=== PATIENT | female | born 1960 | race Caucasian/White ===

== ENCOUNTER → 2017-07-05 10:00 | Outpatient (CLI) | payer BC, SELFPAY ==
[2017-07-05 10:30] LABS: Basophils % 0.4 % (0.1-2.0); Eosinophils # 0.2 K/mm3 (0.0-0.4); Eosinophils % 3.8 % (0.1-12.0); Hematocrit 43.6 % (37.0-47.0); Hemoglobin 14.1 g/dL (12.2-16.2); Lymphocytes % 34.1 K/mm3 (10-50); Mean Corpuscular HGB Conc 32.3 g/dL (31.8-35.4); Mean Corpuscular Hemoglobin 30.3 pg (27.0-31.2); Mean Corpuscular Volume 93.7 fl (81-99); Mean Platelet Volume 7.2 fl (7.4-10.4); Monocytes # 0.4 K/mm3 (0.1-1.0); Monocytes % 6.4 % (1.7-9.3); Neutrophils # 3.3 K/mm3 (1.8-7.8); Neutrophils % 55.4 % (37.0-80.0); Platelet Count 311 K/mm3 (142-424); Red Blood Count 4.65 M/mm3 (4.20-5.40); Red Cell Distribution Width 12.3 % (11.5-17.5)
[2017-07-05 10:31] LABS: Anion Gap 8.4 mEq/L (5-15); Blood Urea Nitrogen 15 mg/dL (7-18); Carbon Dioxide 35 mmol/L (21.0-32.0); Chloride 98 mmol/L (98-107); Creatinine,Serum 0.59 mg/dL (0.55-1.02); Estimated Glomerular Filt Rate 105 ml/min (>60); GFR (African American) 127 ML/MIN (>60); Glucose 96 mg/dL (74-106); Potassium 3.4 mmoL/L (3.5-5.1); Sodium 138 mmol/L (136-145)
== END ==
PROVIDERS: Family Provider Internal Medicine Adolescent Medicine; PCP Internal Medicine Adolescent Medicine; Visit Provider Physician Assistant
DX: J44.9 Chronic obstructive pulmonary disease, unspecified (principal); I50.30 Unspecified diastolic (congestive) heart failure; R06.02 Shortness of breath
CPT/HCPCS: 36415; 80048; 83880; 85025

== ENCOUNTER → 2017-07-11 12:39 | Outpatient (CLI) | payer BC, SELFPAY ==
--- NOTE | 2017-07-11 12:45 | CA_ITS ---
PROCEDURE: 2-D M-mode and color Doppler study INDICATIONS FOR THE TEST: Chest pain COPDX Heart Murmur Tobacco Smoking Palpitations Fatigue Syncope EdemaX HypertensionXDiabetes Mellitus Rheumatic Fever SOBXDOE ObesityXHyperlipidemia Family History HD Additional History PATIENT INFORMATION HEIGHT: 60 WEIGHT:179 GENDER: Female B/P:122/77 2-D/M-MODE INTERPRETATION: 2-D MEASUREMENTS OBSERVED VALUES IN CMS Right Ventricular Dimension (RVDd) 1.1 Interventricular Septum (Thickness)(IVsd) 1.5 Left Ventricular Internal Dimensions(LVIDd) 4.4 Left Ventricular Posterior Wall (Thickness)(LVPWd) 1.6 Aortic Root 3.3 Aortic Cusp Separation 2.1 Left Atrial Dimensions (LAD) 2.8 2D 1. Left atrium is normal size, left ventricle is normal size, there is mild concentric left ventricular hypertrophy, visually estimated ejection fraction of 55% with no obvious regional wall motion abnormality. 2. The right atrium and right ventricle are normal size and contractility. 3. The aortic valve is minimally thickened and fibrosed. 4. The mitral and tricuspid valve are structurally normal. 5. The pulmonic valve is poorly 6. No significant pericardial effusion noted. DOPPLER INTERROGATION: Doppler interrogation of the aortic, mitral and tricuspid valve reveals presence of mild mitral and tricuspid regurgitation, tricuspid and jet velocity insufficient for calculation of the right ventricular systolic pressure, grade 1 diastolic dysfunction seen without tissue Doppler evidence of raised left atrial pressure. CONCLUSION: 1. Normal left ventricular size, preserved left ventricular systolic function, visually estimated ejection fraction 55% with no obvious regional wall motion abnormality, grade 1 diastolic dysfunction seen with tissue Doppler evidence of raised left atrial pressure. 2. Mild mitral and tricuspid regurgitation 3. No significant pericardial effusion noted.
== END ==
PROVIDERS: Family Provider Internal Medicine Adolescent Medicine; PCP Internal Medicine Adolescent Medicine; Visit Provider Internal Medicine
DX: J44.9 Chronic obstructive pulmonary disease, unspecified (principal); I50.30 Unspecified diastolic (congestive) heart failure; R06.02 Shortness of breath
CPT/HCPCS: 93306

== ENCOUNTER → 2018-07-04 13:01 | Outpatient (CLI) | payer BC, SELFPAY ==
--- NOTE | 2018-07-04 13:10 | XR_ITS ---
XR chest 2V HISTORY: ITS.REASON: COPD ORDERING PHYSICIAN: Sean Galo MD PATIENT AGE: 58 years COMPARISON: PA and lateral chest 04/01/2014 FINDINGS: The lung locke are well expanded and appear clear of infiltrate. Again noted is moderate distortion of the bony thorax secondary to the prominent dextroscoliotic curvature of the thoracic spine and the orthopedic hardware in place projecting over the thoracic spine. Cardiac size is borderline however the is no pulmonary congestion and is no pleural fluid. IMPRESSION: Nonacute chest findings, Cano jose in place
== END ==
PROVIDERS: PCP Internal Medicine Adolescent Medicine; Visit Provider Internal Medicine Adolescent Medicine
DX: J44.9 Chronic obstructive pulmonary disease, unspecified (principal)
CPT/HCPCS: 71046

== ENCOUNTER → 2018-11-30 10:10 | Outpatient (CLI) | payer BC, SELFPAY ==
--- NOTE | 2018-11-30 10:14 | MM_ITS ---
PROCEDURE: MM DIG SCREENING MAMM BI W/CAD CLINICAL INDICATION: SCREENING There is a history of breast cancer patient's maternal aunt diagnosed before menopause. The patient had previous mammograms 20 years ago and they are not available for review COMPARISON: No exams were available for comparison TECHNIQUE: Standard CC and MLO images were obtained. R2 CAD reviewed. FINDINGS: Moderate scattered fibroglandular densities are seen in central portions of both breasts. There is a possible asymmetric density just deep to the nipple left breast best appreciated on the on the cc view. Recommend the patient return for spot compression views in MLO CC projection and ultrasound may be necessary as well. Small nodes in both axilla. There are no suspicious microcalcifications. IMPRESSION: Moderate breast density with possible asymmetric density left breast versus summation shadow BI-RAD Category: 0 Need Additional Imaging Evaluation FOLLOW-UP: IMM Immediate Follow-up Recommended (A letter has been sent to the patient regarding results of the study.) Dictated by: Dr. Duane Wren MD 12/04/2018 07:59 Signed by: <Electronically signed by Dr. Duane Wren MD in [place]> 12/04/2018 07:59
--- NOTE | 2018-11-30 10:27 | XR_ITS ---
PROCEDURE: XR DEXA AXIAL SKELETON CLINICAL HISTORY: POST MENOPAUSAL COMPARISON: No exams were available for comparison TECHNIQUE: Hardware is present in the lumbar spine. The radius 33 percent density has a T-score -1.6. Right femoral neck density is 0.723 grams/centimeter sq with a T-score of -2.3. FINDINGS: Hardware is present in the lumbar spine. The radius 33 percent density has a T-score -1.6. Right femoral neck density is 0.723 grams/centimeter sq with a T-score of -2.3. IMPRESSION: Osteopenia with moderate fracture risk. Treatment advised. Suggest follow-up exam November 2020 Dictated by: Tito Underwood MD 11/30/2018 12:24 Signed by: <Electronically signed by Tito Underwood MD in [place]> 11/30/2018 12:24
== END ==
PROVIDERS: PCP Internal Medicine Adolescent Medicine; Visit Provider Internal Medicine Adolescent Medicine
DX: Z12.31 Encounter for screening mammogram for malignant neoplasm of breast (principal); Z13.820 Encounter for screening for osteoporosis; Z78.0 Asymptomatic menopausal state
CPT/HCPCS: 77067; 77080

== ENCOUNTER → 2019-01-24 11:25 | Outpatient (CLI) | payer BC, SELFPAY ==
[2019-01-24 11:29] LABS: Microscopic, Urine URINE MICROSCOPIC (MICROSCOPIC)
--- NOTE | 2019-01-24 11:42 | XR_ITS ---
PROCEDURE: XR CHEST 2V CLINICAL HISTORY: DYSPNEA,PERIPHERAL EDEMA Right-sided chest pain with dyspnea and peripheral edema, former smoker COMPARISON: CT CHEST WO CONTRAST from 12/24/2014 CXR CHEST(2 VIEWS-NOT PORTABLE) from 08/23/2016 CXR CHEST(2 VIEWS-NOT PORTABLE) from 08/25/2016 CXR2V XR chest 2V from 07/04/2018 FINDINGS: Mild cardiomegaly without failure. Thoracic scoliosis convex right. Prior Cano jose placement as before. Fibrotic changes are present in the lower lobes. There is prominence of the mediastinum as before some of which likely related to the scoliosis. There are old right-sided rib fractures. No acute finding. IMPRESSION: No change with no acute finding. Dictated by: Tito Underwood MD 01/24/2019 12:05 Electronically signed by Tito Underwood MD in [place] 01/24/2019 12:05
[2019-01-24 11:55] LABS: Basophils # 0.1 K/mm3 (0-0.2); Basophils % 0.7 % (0.1-2.0); Eosinophils # 0.2 K/mm3 (0.0-0.4); Eosinophils % 2.1 % (0.1-12.0); Hemoglobin 15.2 g/dL (12.2-16.2); Lymphocytes # 1.8 K/mm3 (0.7-4.5); Lymphocytes % 21.1 % (10-50); Mean Corpuscular HGB Conc 32.5 g/dL (31.8-35.4); Mean Corpuscular Hemoglobin 30.6 pg (27.0-31.2); Mean Corpuscular Volume 94.2 fl (81-99); Mean Platelet Volume 7.1 fl (7.4-10.4); Monocytes # 0.4 K/mm3 (0.1-1.0); Monocytes % 4.5 % (1.7-9.3); Neutrophils # 5.9 K/mm3 (1.8-7.8); Neutrophils % 71.5 % (37.0-80.0); Platelet Count 316 K/mm3 (142-424); Red Blood Count 4.99 M/mm3 (4.20-5.40); Red Cell Distribution Width 12.4 % (11.5-17.5); White Blood Count 8.3 K/mm3 (4.8-10.8)
[2019-01-24 12:15] LABS: Appearance,Urine CLEAR (Clear); Blood, Urine 1+ (Negative); Color,Urine RED (Yellow); Glucose,Urine (UA) TRACE (Negative); Ketones,Urine Negative (Negative); Leukocyte Esterase,Urine Negative (Negative); Nitrate,Urine POSITIVE (Negative); Protein,Urine TRACE (Negative); Specific Gravity, Urine 1.015 (1.005-1.030)
[2019-01-24 12:49] LABS: Bilirubin,Urine Trace (Negative)
[2019-01-24 12:57] LABS: Bacteria,Urine 2+ /lpf
[2019-01-24 13:03] LABS: Hyaline Casts,Urine Occasional #/lpf (0)
[2019-01-24 13:39] LABS: Alanine Aminotransferase 27 U/L (12-78); Albumin Level 4.3 gm/dL (3.4-5.0); Albumin/Globulin Ratio 1.2 (1.1-1.8); Alkaline Phosphatase 78 U/L (46-116); Aspartate Amino Transferase 20 U/L (15-37); Bilirubin,Total 0.4 mg/dL (0.2-1.0); Blood Urea Nitrogen 17 mg/dL (7-18); Calcium 9.3 mg/dL (8.5-10.1); Carbon Dioxide 34 mmol/L (21.0-32.0); Creatinine,Serum 0.63 mg/dL (0.55-1.02); Estimated Glomerular Filt Rate 97 ml/min (>60); GFR (African American) 117 ML/MIN (>60); Globulin 3.5 gm/dl (1.3-3.2); Glucose 90 mg/dL (74-106); Thyroid Stimulating Hormone 0.63 uIU/ml (0.358-3.740); Total Protein,Serum 7.8 gm/dL (6.4-8.2)
[2019-01-24 14:28] LABS: Anion Gap 14.4 mEq/L (5-15); Chloride 97 mmol/L (98-107); Potassium 3.4 mmoL/L (3.5-5.1); Sodium 142 mmol/L (136-145)
== END ==
PROVIDERS: PCP Internal Medicine Adolescent Medicine; Visit Provider Internal Medicine Adolescent Medicine
DX: R10.9 Unspecified abdominal pain (principal); R06.09 Other forms of dyspnea; R60.9 Edema, unspecified
CPT/HCPCS: 36415; 71046; 80053; 81001; 83880; 84443; 85025; 87086

== ENCOUNTER → 2019-01-26 13:21 | Outpatient (CLI) | payer BC, SELFPAY ==
--- NOTE | 2019-01-26 13:26 | CA_ITS ---
[facility] RADIOLOGICAL CONSULTATION Patient Name : Jeny Mathis X-RAY # : [id number] Physician: KATHY ERAZO AGE: 58Y : 1960 00:00:00 ( F ) Exam : CA ECHO DOPPLER COMPLETE ACC # : [id number] Study Date : 01/26/2019 13:32:19 Patient Class : O FINAL REPORT CLINICAL DATA: FINDINGS: TRANSCRIBED REPORT EXAM: Comprehensive 2D, Doppler, and color-flow Echocardiogram Supply Planner: Dipti Jo RVT Ht: 5 ft 0 in Wt: 181lbs BSA: 1.79 BP: 137/84 mmHg Indications: COPD, Shortness of Breath, Dyspnea, Hyperlipidemia, Hypertension,Edema,Hx of smoking 2D Dimensions LVOT 2.47 cm (M/F) 1.5-2.5 M-Mode Dimensions RVDd 2.02 cm (0.9-2.6) LVDd 3.95 cm (3.5-5.7) LVDs 2.66 cm (3.5-5.7) IVSd 0.89 cm (0.6-1.1) PWd 0.44 cm (0.6-1.1) EF (Teich) 61.70% FS 32.70% EDV (Teich) 67.90 mL ESV (Teich) 26.00 mL LV Diastology E/A Ratio 1.27 Mitral Valve MV A Velocity 26.00 (40-130 cm/s) Electronically signed by : IMPRESSION: Dictated by at Transcribed by at
== END ==
PROVIDERS: PCP Internal Medicine Adolescent Medicine; Visit Provider Internal Medicine Adolescent Medicine
DX: R06.09 Other forms of dyspnea (principal); R60.9 Edema, unspecified
CPT/HCPCS: 93306

== ENCOUNTER → 2019-03-05 14:06 | Outpatient (CLI) | payer BC, SELFPAY ==
--- NOTE | 2019-03-05 14:11 | XR_ITS ---
PROCEDURE: XR RIBS LT MIN 3V W CXR1V CLINICAL INDICATION: LT RIB PAIN Injury with pain COMPARISON: CT CHEST WO CONTRAST from 12/24/2014 CXR CHEST(2 VIEWS-NOT PORTABLE) from 08/25/2016 CXR2V XR chest 2V from 07/04/2018 XR CHEST 2V from 01/24/2019 FINDINGS: There is moderate to severe dextroscoliosis with Cano rods in place as before. Scarring is noted in both lower lobes. There is diffuse osteopenia. No displaced rib fractures are evident. There are small areas of cortical irregularity involving the left 3rd, 4th, and 9th ribs. These are consistent with nondisplaced fractures and are age indeterminate. No displaced fractures evident. No evidence of pneumothorax. Severe lumbar scoliosis convex left. Nonobstructing 3 mm stone in the mid polar region of the right kidney. IMPRESSION: Severe scoliosis with nondisplaced fractures of the left 3rd 4th and 9th ribs Dictated by: Tito Underwood MD 03/05/2019 17:29 Electronically signed by Tito Underwood MD in [place] 03/05/2019 17:29
== END ==
PROVIDERS: PCP Internal Medicine Adolescent Medicine; Visit Provider Internal Medicine Adolescent Medicine
DX: R07.81 Pleurodynia (principal)
CPT/HCPCS: 71101

== ENCOUNTER → 2019-11-28 08:40 | Outpatient (CLI) | payer BC, SELFPAY ==
[2019-11-28 14:15] LABS: Basophils % 0.6 % (0.1-2.0); Eosinophils # 0.2 K/mm3 (0.0-0.4); Eosinophils % 3.6 % (0.1-12.0); Hemoglobin 15.3 g/dL (12.2-16.2); Lymphocytes # 2.2 K/mm3 (0.7-4.5); Lymphocytes % 33.4 % (10-50); Mean Corpuscular HGB Conc 33.9 g/dL (31.8-35.4); Mean Corpuscular Hemoglobin 30.9 pg (27.0-31.2); Mean Platelet Volume 8.5 fl (7.4-10.4); Monocytes # 0.3 K/mm3 (0.1-1.0); Monocytes % 4.9 % (1.7-9.3); Neutrophils # 3.8 K/mm3 (1.8-7.8); Neutrophils % 57.5 % (37.0-80.0); Platelet Count 344 K/mm3 (142-424); Red Blood Count 4.94 M/mm3 (4.20-5.40); Red Cell Distribution Width 13.1 % (11.5-17.5); White Blood Count 6.7 K/mm3 (4.8-10.8)
[2019-11-28 14:21] LABS: Alanine Aminotransferase 17 U/L (12-78); Albumin Level 4.3 g/dl (3.5-5.0); Albumin/Globulin Ratio 1.4 (1.1-1.8); Alkaline Phosphatase 66 U/L (38-126); Anion Gap 14.1 mEq/L (5-15); Aspartate Amino Transferase 32 U/L (14-36); Bilirubin,Total 0.6 mg/dl (0.2-1.3); Blood Urea Nitrogen 14 mg/dl (7-17); Calcium 9.5 mg/dl (8.4-10.2); Carbon Dioxide 33 mmol/L (22.0-30.0); Chloride 93 mmol/L (98-107); Estimated Glomerular Filt Rate 163 ml/min (>60); GFR (African American) 198 ML/MIN (>60); Glucose 87 mg/dl (74-100); Potassium 4.1 mmoL/L (3.5-5.1); Sodium 136 mmol/L (136-145); Total Protein,Serum 7.3 g/dl (6.3-8.2)
== END ==
PROVIDERS: Visit Provider Internal Medicine Adolescent Medicine
DX: I10 Essential (primary) hypertension (principal)
CPT/HCPCS: 36415; 80053; 85025

== ENCOUNTER 2019-11-30 10:00 | Outpatient (RCR) | payer BC, SELFPAY ==
--- NOTE | 2019-10-31 15:56 | HMH.PTOPWND ---
Rehab Outpt Wound Evaluation Rehab OP Wound Evaluation Start: 10/31/19 14:49 Freq: Status: Active Protocol: Document 10/31/19 15:40 DANIELLE (Rec: 10/31/19 15:55 PHORNE [id number]) Electronically Signed By Rowdy Weeks, PT 10/31/19 15:40 Subjective/History History History Pt is 59 yowf who presents with c/o increased edema and pain in B LE x 2-3 yrs with insidious onset of symptoms. She states, They feel good today, but sometimes they just hurt and swell so bad I can't hardly stand it. 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 She reports B LE present with intermittent numbness/tingling feelings. Subjective Subjective Pain currently 4/10, at worst 9/10. Tenderness to palpation in B lower legs 3/4. Significant varicosities noted on B lower legs. Lymphedema Eval Classification of Lymphedema Secondary Lymphedema Yes: likely CVI, poss Lipidema Stemmer's sign Stemmer's Sign no Stage of Lymphedema Lymphedema stages Stage I (Pitting edema, reduces w/ elevation, no fibrosis) Skin Changes Dry Skin Yes Redness Yes Other Changes Yes Pain Scale Pain Scale (0-10) 9 Affected Extremities Areas Affected by Lymphedema/Edema Right Lower Extremity,Left Lower Extremity Lower Extremity Measurements Left MTP Measurement (cm) 23.2 Heel Measurement (cm) 29.0 10 cm Proximal to Lateral Malleoli 28.4 Measurement (cm) 20 cm Proximal to Lateral Malleoli 36.2 Measurement (cm) 30 cm Proximal to Lateral Malleoli 38.5 Measurement (cm) 40 cm Proximal to Lateral Malleoli 43.7 Measurement (cm) 50 cm Proximal to Lateral Malleoli 51.8 Measurement (cm) 60 cm Proximal to Lateral Malleoli 0 Measurement (cm) Lower Extremity Measurement Total (cm) 250.8 Right MTP Measurement (cm) 21.4 Heel Measurement (cm) 28.8
== END 2019-11-30 10:05 | disposition home or self-care (01) ==
LOC: PT 10:00
PROVIDERS: PCP Internal Medicine Adolescent Medicine; Visit Provider Internal Medicine Adolescent Medicine
DX: R60.0 Localized edema (principal)
CPT/HCPCS: 97140; 97162; 97164

== ENCOUNTER → 2020-02-14 12:32 | Outpatient (CLI) | payer BC, SELFPAY ==
--- NOTE | 2020-02-14 12:37 | XR_ITS ---
PROCEDURE: XR CHEST 2V CLINICAL HISTORY: RT SIDE CHEST PAIN Right-sided chest pain, pain, COMPARISON: CT CT CHEST WO CONTRAST from 12/24/2014 DX CXR2V XR chest 2V from 07/04/2018 CR XR CHEST 2V from 01/24/2019 CR XR RIBS LT MIN 3V W CXR1V from 03/05/2019 FINDINGS: There is moderate thoracic scoliosis convex right. Cano rods are in place as before overall not significantly changed. There are chronic fibrotic changes in the lower lobes. There are old bilateral rib fractures. There is moderate lumbar scoliosis convex left. No acute displaced rib fractures are evident. No acute bony abnormalities. IMPRESSION: Old right-sided rib fractures with severe thoracolumbar scoliosis with Cano rods in place. No definite acute finding. Consider volumetric CT with multi planar and 3D reformats for further evaluation if pain persist Dictated by: Tito Underwood MD 02/14/2020 14:14 Tito Underwood MD in [place] 02/14/2020 14:14
== END ==
PROVIDERS: PCP Internal Medicine Adolescent Medicine; Visit Provider Internal Medicine Adolescent Medicine
DX: R07.89 Other chest pain (principal)
CPT/HCPCS: 71046; 71100

== ENCOUNTER → 2020-09-10 08:15 | Outpatient (CLI) | payer BC, SELFPAY ==
[2020-09-10 10:13] LABS: Basophils # 0.1 K/mm3 (0-0.2); Basophils % 0.9 % (0.1-2.0); Eosinophils # 0.2 K/mm3 (0.0-0.4); Eosinophils % 2.1 % (0.1-12.0); Hematocrit 42.1 % (37.0-47.0); Hemoglobin 14.6 g/dL (12.2-16.2); Lymphocytes # 2.2 K/mm3 (0.7-4.5); Lymphocytes % 30.6 % (10-50); Mean Corpuscular HGB Conc 34.8 g/dL (31.8-35.4); Mean Corpuscular Hemoglobin 31.1 pg (27.0-31.2); Mean Corpuscular Volume 89.6 fl (81-99); Mean Platelet Volume 7.2 fl (7.4-10.4); Monocytes # 0.5 K/mm3 (0.1-1.0); Monocytes % 6.6 % (1.7-9.3); Neutrophils # 4.3 K/mm3 (1.8-7.8); Neutrophils % 59.8 % (37.0-80.0); Platelet Count 371 K/mm3 (142-424); Red Cell Distribution Width 12.9 % (11.5-17.5); White Blood Count 7.3 K/mm3 (4.8-10.8)
[2020-09-10 10:42] LABS: Chloride 92 mmol/L (98-107); Potassium 3.5 mmoL/L (3.5-5.1); Sodium 136 mmol/L (136-145)
[2020-09-10 10:45] LABS: Alanine Aminotransferase 16 U/L (12-78); Albumin Level 4.7 g/dl (3.5-5.0); Albumin/Globulin Ratio 1.7 (1.1-1.8); Alkaline Phosphatase 71 U/L (38-126); Anion Gap 12.5 mEq/L (5-15); Aspartate Amino Transferase 25 U/L (14-36); Bilirubin,Total 0.5 mg/dl (0.2-1.3); Blood Urea Nitrogen 16 mg/dl (7-17); Calcium 9.8 mg/dl (8.4-10.2); Carbon Dioxide 35 mmol/L (22.0-30.0); Cholesterol 199 mg/dl (140-200); Estimated Glomerular Filt Rate 102 ml/min (>60); GFR (African American) 123 ML/MIN (>60); Globulin 2.7 g/dL (1.3-3.2); Glucose 72 mg/dl (74-100); HDL Cholesterol 66 mg/dl (40-60); Total Protein,Serum 7.4 g/dl (6.3-8.2); Triglycerides 74 mg/dl (30-150); VLDL Cholesterol 15 mg/dL (0-40)
[2020-09-10 10:56] LABS: Direct LDL Cholesterol 98.43 mg/dL (100-129)
== END ==
PROVIDERS: Visit Provider Internal Medicine Adolescent Medicine
DX: I10 Essential (primary) hypertension (principal)
CPT/HCPCS: 36415; 80053; 80061; 85025

== ENCOUNTER 2021-02-25 07:57 | Outpatient (CLI) | payer BC, SELFPAY ==
[2021-02-25] VITALS (8 sets, daily range): BP systolic 105–131; BP diastolic 62–83; PULSE 82–92; RESP 20; TEMP 36.8–36.9; O2SAT 91–95
== END 2021-02-25 10:15 | disposition home or self-care (01) ==
LOC: INF 07:58
PROVIDERS: PCP Internal Medicine Adolescent Medicine; Visit Provider Internal Medicine Adolescent Medicine
DX: U07.1 COVID-19 (principal); Z23 Encounter for immunization
CPT/HCPCS: 96365

== ENCOUNTER → 2021-07-06 13:05 | Outpatient (CLI) | payer BC, SELFPAY ==
--- NOTE | 2021-07-06 13:14 | XR_ITS ---
FINAL REPORT CLINICAL HISTORY: RIGHT SACROILIAC JOINT PAIN FINDINGS: SI JOINTS An AP view of the pelvis and lateral views of the right and left SI joints were obtained. There is no acute fracture or dislocation. There are mild degenerative changes of the SI joints bilaterally. The soft tissues are unremarkable. IMPRESSION: Mild degenerative changes bilateral SI joints without acute bony abnormality. Reviewed, Interpreted and Dictated by Aaron Garsia III, MD Transcribed by Olive Nicole Authenticated by Aaron Garsia III, MD on 07/06/2021 02:47:08 PM [facility]
--- NOTE | 2021-07-06 13:14 | XR_ITS ---
FINAL REPORT CLINICAL HISTORY: RIGHT SIDED LOW BACK PAIN FINDINGS: 5 views of the lumbar spine were obtained. There is no evidence of fracture or dislocation. There is levoscoliosis. There is left lateral subluxation of L4 on L5. Mild to moderate degenerative changes and facet arthropathy is seen at the lower lumbar spine. There are partially imaged spinal rods present. No paraspinous soft tissue abnormalities identified. IMPRESSION: Degenerative and postoperative changes without acute bony abnormality. Reviewed, Interpreted and Dictated by Aaron Garsia III, MD Transcribed by Olive Nicole Authenticated by Aaron Garsia III, MD on 07/06/2021 02:47:05 PM [facility]
== END ==
LOC: RAD 13:08
PROVIDERS: PCP Internal Medicine Adolescent Medicine; Visit Provider Internal Medicine Adolescent Medicine
DX: M53.3 Sacrococcygeal disorders, not elsewhere classified (principal)
CPT/HCPCS: 72110; 72202

== ENCOUNTER 2021-07-30 15:00 | Outpatient (RCR) | payer BC, SELFPAY ==
--- NOTE | 2021-06-24 13:15 | HMH.PTOPWND ---
Rehab Outpt Wound Evaluation Rehab OP Wound Evaluation Start: 06/24/21 12:45 Freq: Status: Active Protocol: Document 06/24/21 13:08 DANIELLE (Rec: 06/24/21 13:15 PHOCELINA [id number]) Electronically Signed By Rowdy Weeks, PT 06/24/21 13:08 Subjective/History History History Pt is 60 yowf who presents with c/o B LE edema for several years with insidious onset. She reports increased pain in B LE, R worse than L, but not always associated with increased edema. She also reports her edema is failry constant and does not decrease with elevation of her legs. She reports hx of COPD and HTN . Subjective Subjective I take blood pressure medicin, but my blood pressure isn't high when they check it . Pt c/o 2/4 tenderness to palpation in B LE gaitor area. Mutiple varicosities noted to B LE. Pain currently 3/10, at worst 8/10. Lymphedema Eval Classification of Lymphedema Secondary Lymphedema Yes Stemmer's sign Stemmer's Sign no Stage of Lymphedema Lymphedema stages Stage 0 (subjective c/o heaviness and aching) Skin Changes Dry Skin Yes Skin Folds Yes Discoloration of Skin Yes Other Changes Yes Pain Scale Pain Scale (0-10) 8 Affected Extremities Areas Affected by Lymphedema/Edema Right Lower Extremity,Left Lower Extremity Manual Lymphatic Drainage Treatment Area MLD Treatment Area Right Lower Extremity,Left Lower Extremity Wound Problems/Impairments Impairments Problems/Impairmments Palpation Tenderness,Impaired Endurance,Impaired Walking, Impaired Standing,Impaired Household Care,Impaired Recreational Activities, Increased Edema,Lymphedema Present,Subjective C/O Pain, Impaired Self Care/Self Management Prognosis Rehab Potential Good Clinical Impression Consistent with Diagnosis Yes Short Term Goals Number of Weeks 4 Decreased Palpation
--- NOTE | 2021-07-28 15:49 | HMH.RHREAS ---
Rehab Reassessment Rehab OP Re-assessment Start: 07/28/21 15:40 Freq: Status: Active Protocol: Document 07/28/21 15:41 DANIELLE (Rec: 07/28/21 15:48 PHOCELINA [id number]) Electronically Signed By Rowdy Weeks, PT 07/28/21 15:41 Rehab Re-assessment Subjective Subjective Pt states, I feel a whole lot better, but I'm still just a little tender. Objective Objective Notes L LE with continued edema at the ankle nwithout pitting noted. Tenderness to palpation 1/4 to B LE in the gaitor area. Assessment Progress Assessment Progressing as Expected Assessment Notes Less pain overall with less tenderness noted. Significant change in status with less edema overall. Tenderness is better controlled, but needs improvement. Patient goals met ST,2,3,4 Goals Not Met LT,2,3,4,5,6 Revised Goals none Plan Plan Continue per initial POC. Frequency of Therapy 2 x/wk Duration of therapy 4 wks Time and Billing Re-Eval Time 13 Re-Eval Billing Units 1 PHYSICIAN CERTIFICATION: I certify the specified therapy services for Jeny Mathis are required, authorized, and reviewed every 30 days.
== END 2021-07-30 15:05 | disposition home or self-care (01) ==
LOC: PT 15:00
PROVIDERS: PCP Internal Medicine Adolescent Medicine; Visit Provider Internal Medicine Adolescent Medicine
DX: I89.0 Lymphedema, not elsewhere classified (principal)
CPT/HCPCS: 97140; 97162; 97164; 97760

== ENCOUNTER → 2021-08-17 14:45 | Outpatient (POV) | payer BC, SELFPAY ==
[2021-08-17 15:01] VITALS: BP 178/98; PULSE 113; RESP 20; TEMP 36.6; O2SAT 91; BMI 35.1
--- NOTE | 2021-08-17 15:57 | HMH.PMCON ---
Assessment and Plan (1) Sacroiliitis Status: Acute Category: Medical Code(s): M46.1 - Sacroiliitis, not elsewhere classified (2) Greater trochanteric bursitis Status: Acute Category: Medical Code(s): M70.60 - Trochanteric bursitis, unspecified hip - Assessment and plan all Dx Assessment and Plan for all problems:: We will schedule the patient for a right SI injection and left greater trochanteric bursa injection. Risks and benefits of the procedure have been explained to the patient. Patient would like to proceed with the procedure. Follow-up after the injection. Patient has been instructed to contact the clinic with any concerns before the next appointment. Dr. Downing has reviewed this note and agrees with this plan of care. This note was dictated using voice recognition software and make contain errors or omissions. HPI - Data of Consult Patient: new to practice Consult date: 08/17/21 Requesting Physician: PJ Velasquez Primary Care Provider: Sean Galo MD - Consult Narrative Reason for consult: Bilateral hip pain History of present illness: Ms. Mathis is a 61 year old female who presents today as a new patient. Patient is referred by Dr. Galo. Thank you for the referral. Patient presents today with worsening bilateral hip pain that radiates to bilateral lower legs. Patient states that she has been having trouble getting up from a sitting position because of this pain. She cannot tolerate any full activities such as sitting, standing, and walking. She had a bilateral SI x-ray recently that shows mild degenerative changes in the bilateral SI joints. She was referred to us for possible SI injections. Rates her pain today as 8 out of 10. She is currently prescribed [place] 7.5 mg 4 times a day. [facility] [phone] with an active morphine equivalent of 30. CC: PJ Velasquez [facility] History I have reviewed the patient's past medical history: Yes Medical History: Reports:: Asthma, Chronic Obstructive Pulmonary Disease (COPD), Hypertension Denies:: Cancer, Diabetes Mellitus Type 1, Diabetes Mellitus Type 2, MRSA *Have you ever received a pneumonia vaccine?: Yes *Have you received a flu vaccine this season?: Yes Other Medical History: Reports: Arthritis Laterality Cases: Bilateral: Tonsillectomy Other Surgeries: Yes: Appendectomy, Cardiac Catheterization, Diagnostic Lap, Hysterectomy-Total, Other Amputation: No Fractures: No - *Social History Smoking Status: Former smoker Alcohol Intake: never Alcohol Intake Frequency:: other *Occupational Status:: other Housing: house Household Members: other *Travel in the last 8 weeks: None Family Hx:: Other Review of Systems - Review of Systems Review of Systems: General: No recent weight changes, no fever, no sleep disturbances Respiratory: No cough, no shortness of air, no recurring pulmonary infections Cardiovascular/peripheral vascular: No chest pain, no palpitations, no edema, no shortness of breath Gastrointestinal: No new onset incontinence, normal bowel movements reported Genitourinary: No new onset incontinence Musculoskeletal: Bilateral hip pain Psychiatric: [Normal mood/affect] Neurological: [Denies weakness in extremities], [denies balance issues] Meds Home Medications Medication Instructions Recorded Confirmed Type albuterol sulfate 90 mcg/actuation 2 inh INHALATION Q4H each 07/04/17 History breath activated powder inhaler esomeprazole magnesium 20 mg 20 mg PO DAILY cap 07/04/17 History capsule,delayed release furosemide 40 mg tablet 40 mg PO BID tab 07/04/17 History hydrochlorothiazide 25 mg tablet 25 mg PO DAILY tab 07/04/17 History hydrocodone 10 mg-acetaminophen 1 tab PO Q4-6H PRN 07/04/17 History 325 mg tablet metoprolol succinate 25 mg 25 mg PO DAILY tab 07/04/17 History tablet,extended release 24 hr montelukast 10 mg tablet 10 mg PO QHS 07/05/17 History potassium chloride 20 mEq 20 meq PO QID t
== END ==
PROVIDERS: PCP Internal Medicine Adolescent Medicine; Visit Provider Student in an Organized Health Care Education/Training Program
DX: M46.1 Sacroiliitis, not elsewhere classified (principal); M70.60 Trochanteric bursitis, unspecified hip
CPT/HCPCS: 99202; G0463

== ENCOUNTER 2021-08-21 07:33 | Day surgery (SDC) | payer BC, SELFPAY ==
[2021-08-21 08:02] VITALS: BP 131/80; PULSE 100; RESP 18; TEMP 36.6; O2SAT 90; BMI 35.1
[2021-08-21 08:30] VITALS: BP 167/94; PULSE 91; RESP 19
[2021-08-21 08:32] VITALS: BP 142/89; PULSE 94; RESP 18; O2SAT 91
--- NOTE | 2021-08-21 08:39 | P.PCN_ITS ---
- Procedure Date: 08/21/21 Time: 08:39 Anesthesiologist:: Nima Owens CRNA Complications:: None Pre-procedure Diagnosis:: Sacroiliitis. Right trochanteric bursitis. Post-procedure Diagnosis:: Same Indications for Procedure:: Very pleasant 61-year-old female who comes our procedure clinic today for right SI joint injection as well as left trochanteric bursa injection. Patient has e xtreme point tenderness over the right SI joint as well as the left trochanteric bursa area. Procedure Details:: Procedure: Right sacroliliac joint injection under fluoroscopy Informed consent was obtained and the risk and benefits of the procedure were explained to the patient.~ The patient was taken to the procedure room and noninvasive monitors were placed including noninvasive blood pressure cuff and pulse oximeter.~ The patient was placed prone on the procedure table.~ The~ right hip was cleansed using Betadine as a cleansing solution.~ C-arm fluorosocpy was used to view the right SI joint.~ The skin and subcutaneous tissues were anesthetized using Lidocaine 1.5% and a 25-gauge needle.~ After this, a 22-gauge spinal needle was inserted under fluoroscopic guidance into the inferior aspect of the right SI joint.~ Omnipaque dye was injected and a good spread was seen throughout the joint.~ After this, approximately 5 mL of bupivacaine 0.25% and Depo-Medrol 40 mg was incrementally injected into the sacroiliac joint.~ The patient tolerated the procedure well with no complications.~ The patient was observed in the Pain Clinic, then discharged home neurologically intact.~ Details of the procedure were explained to the patient. The patient was placed on the fluoroscopy table in the supine position. The area over the left trochanteric bursa was cleansed using chlorhexidine as a cleansing solution. Using a 22-gauge spinal needle the left trochanteric bursa area was accessed with without difficulty using fluoroscopy guidance. 3 cc of 1% lidocaine +2 cc of 0.25% Marcaine and 40 mg of Depo-Medrol was injected. Patient tolerated the procedure without difficulty. There are no complications. Plan and Disposition:: Patient was discharged with minimal pain. Patient reports pain in the left posterior hip area is much better with ambulation and sitting.
[2021-08-21 08:56] VITALS: BP 120/85; PULSE 77; RESP 20; O2SAT 94
== END 2021-08-21 08:58 | disposition home or self-care (01) ==
LOC: SC.PAINP 07:34
PROVIDERS: PCP Internal Medicine Adolescent Medicine; Visit Provider Nurse Anesthetist, Certified Registered
DX: M46.1 Sacroiliitis, not elsewhere classified (principal); M70.61 Trochanteric bursitis, right hip; J44.9 Chronic obstructive pulmonary disease, unspecified; I10 Essential (primary) hypertension; M19.90 Unspecified osteoarthritis, unspecified site; K21.9 Gastro-esophageal reflux disease without esophagitis; Z88.1 Allergy status to other antibiotic agents; Z88.8 Allergy status to other drugs, medicaments and biological substances
CPT/HCPCS: 20610; 27096; 77002; G0260; J1040

== ENCOUNTER 2021-12-13 15:35 | Emergency (ER) | payer MEDICARE, SELFPAY ==
[2021-12-13 15:42] VITALS: BP 136/78; PULSE 86; RESP 16; O2SAT 98; BMI 31.6
[2021-12-13 15:50] VITALS: BP 136/78; PULSE 86; RESP 16; TEMP 36.7; O2SAT 98; BMI 31.8
--- NOTE | 2021-12-13 15:50 | XR_ITS ---
PROCEDURE INFORMATION: Exam: XR Left Hand Exam date and time: 12/13/2021 4:14 PM Age: 61 years old Clinical indication: Injury or trauma; Fall; Blunt trauma (contusions or hematomas); Wrist; Left TECHNIQUE: Imaging protocol: Radiologic exam of the Left hand. Views: 3 or more views. COMPARISON: No relevant prior studies available. FINDINGS: Bones/joints: Distal radius fracture with intra-articular extension. No dislocation. Mild narrowing of the IP joints. Normal carpal bone alignment. Soft tissues: Normal. IMPRESSION: Distal radius fracture.
--- NOTE | 2021-12-13 15:50 | XR_ITS ---
PROCEDURE INFORMATION: Exam: XR Left Hip Exam date and time: 12/13/2021 4:02 PM Age: 61 years old Clinical indication: Injury or trauma; Fall; Blunt trauma (contusions or hematomas); Bilateral; Pelvic region TECHNIQUE: Imaging protocol: Radiologic exam of the Left hip. Views: 2 or 3 views hip with pelvis when performed. COMPARISON: CR PELAP PELVIS AP ONLY 11/10/2016 2:17 PM FINDINGS: Bones/joints: No acute fracture or dislocation. Hip joints, SI joints and pubic symphysis are unremarkable. Soft tissues: Unremarkable. IMPRESSION: No acute findings.
--- NOTE | 2021-12-13 15:50 | XR_ITS ---
PROCEDURE INFORMATION: Exam: XR Lumbosacral Spine Exam date and time: 12/13/2021 4:00 PM Age: 61 years old Clinical indication: Injury or trauma; Fall; Blunt trauma (contusions or hematomas) TECHNIQUE: Imaging protocol: Radiologic exam of the lumbosacral spine. Views: 2 or 3 views. COMPARISON: CR XR LUMBAR SPINE MIN 4V 07/06/2021 1:29 PM FINDINGS: Bones/joints: Severe thoracolumbar scoliosis. Ric and pedicle screw hook hardware seen in the lower thoracic spine. No acute fracture or spondylolisthesis. Multilevel facet arthrosis. Disc spaces are preserved. Soft tissues: Unremarkable. IMPRESSION: No acute findings.
--- NOTE | 2021-12-13 15:50 | XR_ITS ---
PROCEDURE INFORMATION: Exam: XR Left Wrist Exam date and time: 12/13/2021 4:14 PM Age: 61 years old Clinical indication: Injury or trauma; Fall; Blunt trauma (contusions or hematomas); Wrist; Left TECHNIQUE: Imaging protocol: Radiologic exam of the Left wrist. Views: 3 or more views. COMPARISON: No relevant prior studies available. FINDINGS: Bones/joints: Fracture of the distal radius in the metaphyseal and epiphyseal region with fracture extension to the articular margin. There is mild dorsal angulation. No significant impaction. Normal carpal bone alignment. Soft tissues: Considerable soft tissue swelling surrounding the wrist. IMPRESSION: Distal radius fracture.
--- NOTE | 2021-12-13 16:51 | EXP.UTC ---
Discharge Plan Disposition Patient Disposition: Home, Self-Care Condition: Good Prescriptions Prescriptions: No Action albuterol sulfate 90 mcg/actuation aerosol powdr breath activated 2 inh INHALATION Q4H hydrochlorothiazide 25 mg tablet 25 mg PO DAILY furosemide [Lasix] 40 mg tablet 40 mg PO BID metoprolol succinate 25 mg tablet extended release 24 hr 25 mg PO DAILY esomeprazole magnesium [Nexium] 20 mg capsule,delayed release(DR/EC) 20 mg PO DAILY hydrocodone-acetaminophen [Cora] 10-325 mg tablet 1 tab PO Q4-6H PRN (Reason: pain) potassium chloride 20 mEq tablet extended release 20 meq PO QID montelukast [Singulair] 10 mg tablet 10 mg PO QHS yngmuacgcob-[id number] [Trelegy Ellipta] 100-62.5-25 mcg blister with device 1 inh INHALATION DAILY Referrals Follow up/Referrals: Samuel Arroyo DO [Staff Physician] - See instructions Sean Galo MD [Primary Care Provider] - See instructions Activity Restrictions/Add. Instructions Additional Instructions/Restrictions: Rest the extremity, apply ice for 15 minutes as tolerated three or four times per day, Elevate the extremity as tolerated while you are resting. Take ibuprofen for pain. I sent in a prescription to your pharmacy. Follow up with Dr. Arroyo (orthopedics). I put in a referral and he has looked at your x-ray. But, you need to call his office and schedule an appointment. Please call first thing in the morning. Follow up with your regular doctor. GO TO THE ER FOR ANY WORSENING SYMPTOMS Clinical Impressions Clinical Impression: Distal radius fracture, left Instructions Patient Instructions: How to Take Care of Your Splint, DI for Distal Radius Fracture Discharge ED Provider: Nikhil Diego [place] HPI General Stated complaint: AO [id number]@home injured L arm Mode of Arrival: Ambulatory Source of Information: Patient Limitations: No Limitations Time Seen by Provider: 12/13/21 16:55 Description of Symptoms (Recalled from Triage Doc. by RN): PATIENT REPORTS FALLING LAST NIGHT WHILE AT A [place]. SHE STATES SHE FELL ON HER LEFT SIDE. C/O PAIN TO LOWER BACK, LEFT HIP, AND LEFT FOREARM. DENIES LOC OR HITTING HEAD HEENT Symptoms (Recalled from RN notes): No Resp Symptoms (Recalled from RN notes): No Skin Symptoms (Recalled from RN notes): No MS Symptoms (Recalled from RN notes): Yes Functional Status (Recalled from RN notes): WNL History of Present Illness Provider Complaint: She states that she fell last night at around 2230 and came down on her left wrist and hand. She is currently having left wrist pain and left hip pain. she denies any neck pain. She denies hitting her head or any head pain. She is having left hip pain with walking. Related Data Home Medications Medication Instructions Recorded Confirmed albuterol sulfate 90 mcg/actuation 2 inh INHALATION Q4H COPD 07/04/17 08/21/21 breath activated powder inhaler esomeprazole magnesium 20 mg 20 mg PO DAILY GERD 07/04/17 08/21/21 capsule,delayed release (Nexium) furosemide 40 mg tablet (Lasix) 40 mg PO BID fluid retention 07/04/17 08/21/21 hydrochlorothiazide 25 mg tablet 25 mg PO DAILY blood pressure 07/04/17 08/21/21 hydrocodone 10 mg-acetaminophen 1 tab PO Q4-6H PRN pain 07/04/17 08/21/21 325 mg tablet (Cora) metoprolol succinate 25 mg 25 mg PO DAILY blood pressure 07/04/17 08/21/21 tablet,extended release 24 hr montelukast 10 mg tablet 10 mg PO QHS COPD 07/05/17 08/21/21 (Singulair) potassium chloride 20 mEq 20 meq PO QID Supplement 07/05/17 08/21/21 tablet,extended release fluticasone fur. 100 mcg-umeclid 1 inh INHALATION DAILY COPD 07/19/17 08/21/21 62.5 mcg-vilant 25 mcg inhalat.powder (Trelegy Ellipta) Allergies Allergy/AdvReac Type Severity Reaction Status Date / Time levofloxacin [From Levaquin] Allergy Intermediate I-RASH Verified 08/17/21 15:02 erythromycin base Allergy Mild STOMACH Verified
[2021-12-13 16:59] VITALS: BP 136/78; PULSE 86; RESP 16; TEMP 36.7; O2SAT 98
== END 2021-12-13 17:19 | disposition home or self-care (01) ==
PROVIDERS: Emergency Provider Nurse Practitioner Family; PCP Internal Medicine Adolescent Medicine
DX: S52.502A Unspecified fracture of the lower end of left radius, initial encounter for closed fracture (principal); W19.XXXA Unspecified fall, initial encounter; Y92.9 Unspecified place or not applicable
CPT/HCPCS: 29125; 72100; 73110; 73130; 73502; 99213; G0463

== ENCOUNTER → 2021-12-22 10:08 | Outpatient (CLI) | payer MEDICARE, SELFPAY ==
--- NOTE | 2021-12-22 10:16 | XR_ITS ---
FINAL REPORT CLINICAL HISTORY: distal radius fx follow-up COMPARISON: December 13, 2021 FINDINGS: LEFT WRIST Three views were obtained. There has been interval placement of a cast. There is a mildly impacted transverse fracture through the distal radial metaphysis. There is mild dorsal angulation on the lateral view. The visualized joint spaces are normally aligned. The soft tissues are unremarkable. IMPRESSION: Mildly impacted distal radius fracture with overlying cast. Reviewed, Interpreted and Dictated by Will Rojas MD Transcribed by Gurvinder Connors Authenticated and [facility]
== END ==
LOC: RAD 10:11
PROVIDERS: PCP Internal Medicine Adolescent Medicine; Visit Provider Orthopaedic Surgery
DX: S52.502A Unspecified fracture of the lower end of left radius, initial encounter for closed fracture (principal)
CPT/HCPCS: 73110

== ENCOUNTER → 2022-01-05 08:38 | Outpatient (CLI) | payer MEDICARE, SELFPAY ==
--- NOTE | 2022-01-05 08:44 | XR_ITS ---
FINAL REPORT CLINICAL HISTORY: fracture COMPARISON: December 22, 2021 FINDINGS: 3 views of the left wrist were obtained. There is an overlying cast obscuring detail. There is a comminuted fracture of the distal radius. There is no change in bony alignment. IMPRESSION: Distal radius fracture. No change in bony alignment. Reviewed, Interpreted and Dictated by Aaron Garsia III, MD Transcribed by Gurvinder Connors Authenticated and [facility]
== END ==
LOC: RAD 08:39
PROVIDERS: PCP Internal Medicine Adolescent Medicine; Visit Provider Orthopaedic Surgery
DX: S52.532D Colles' fracture of left radius, subsequent encounter for closed fracture with routine healing (principal)
CPT/HCPCS: 73110

== ENCOUNTER → 2022-01-19 09:18 | Outpatient (CLI) | payer MEDICARE, SELFPAY ==
--- NOTE | 2022-01-19 09:23 | XR_ITS ---
FINAL REPORT CLINICAL HISTORY: wrist fracture COMPARISON: 01/05/2022 FINDINGS: Left wrist Three views were obtained. Cast obscures the bony detail. Comminuted, mildly impacted fracture is again seen of the distal radius. The bony alignment is stable. No new bony abnormality is identified. IMPRESSION: Comminuted, impacted fracture of the distal radius. Reviewed, Interpreted and Dictated by Aaron Garsia III, MD Transcribed by Tammy Denson Authenticated and [facility]
== END ==
LOC: RAD 09:19
PROVIDERS: PCP Internal Medicine Adolescent Medicine; Visit Provider Orthopaedic Surgery
DX: S52.532D Colles' fracture of left radius, subsequent encounter for closed fracture with routine healing (principal)
CPT/HCPCS: 73110

== ENCOUNTER → 2022-02-02 09:58 | Outpatient (CLI) | payer MEDICARE, SELFPAY ==
--- NOTE | 2022-02-02 10:03 | XR_ITS ---
FINAL REPORT CLINICAL HISTORY: cast removal COMPARISON: 01/19/2022 FINDINGS: LEFT WRIST 3 views of the left wrist were obtained. A cast has been removed. Again noted is a comminuted, impacted fracture of the distal radius. Bony alignment is stable. There are mild degenerative changes. There is no soft tissue abnormality. IMPRESSION: Comminuted, impacted fracture of the distal radius. Reviewed, Interpreted and Dictated by Aaron Garsia III, MD Transcribed by Jeannette Gil Authenticated and [facility]
== END ==
LOC: RAD 09:59
PROVIDERS: PCP Internal Medicine Adolescent Medicine; Visit Provider Orthopaedic Surgery
DX: S52.532D Colles' fracture of left radius, subsequent encounter for closed fracture with routine healing (principal)
CPT/HCPCS: 73110

== ENCOUNTER 2022-02-02 11:07 | Outpatient (RCR) | payer MEDICARE, SELFPAY | END 2022-02-02 12:00 | disposition home or self-care (01) | LOC: OT 11:07 | PROVIDERS: Visit Provider Orthopaedic Surgery | DX: S52.532D Colles' fracture of left radius, subsequent encounter for closed fracture with routine healing (principal) | CPT/HCPCS: 97763 ==

== ENCOUNTER → 2022-02-23 08:59 | Outpatient (CLI) | payer MEDICARE, SELFPAY ==
--- NOTE | 2022-02-23 09:02 | XR_ITS ---
FINAL REPORT CLINICAL HISTORY: wrist fracture COMPARISON: February 02, 2022 FINDINGS: 3 views of the left wrist were obtained. There is an impacted fracture of the distal radius, stable. Again seen is a nondisplaced fracture of the ulnar styloid process. There are mild degenerative changes. IMPRESSION: Distal radius and ulnar styloid process fractures, stable. Reviewed, Interpreted and Dictated by Aaron Garsia III, MD Transcribed by Gurvinder Connors Authenticated and [facility]
== END ==
LOC: RAD 09:00
PROVIDERS: PCP Internal Medicine Adolescent Medicine; Visit Provider Physician Assistant Surgical
DX: S52.532D Colles' fracture of left radius, subsequent encounter for closed fracture with routine healing (principal)
CPT/HCPCS: 73110

== ENCOUNTER → 2022-03-11 08:56 | Outpatient (CLI) | payer MEDICARE, SELFPAY ==
--- NOTE | 2022-03-11 09:01 | XR_ITS ---
FINAL REPORT CLINICAL HISTORY: wrist fracture 12/12/21 F/U COMPARISON: February 23, 2022 FINDINGS: 3 views of the left wrist were obtained. There is a subacute, comminuted, and impacted fracture of the distal radius. Bony alignment is stable. There are mild degenerative changes. The bones are osteopenic. There is soft tissue swelling of the wrist. IMPRESSION: Subacute distal radius fracture, stable. Reviewed, Interpreted and Dictated by Aaron Garsia III, MD Transcribed by Gurvinder Connors Authenticated and [facility]
== END ==
PROVIDERS: PCP Internal Medicine Adolescent Medicine; Visit Provider Physician Assistant Surgical
DX: S52.532D Colles' fracture of left radius, subsequent encounter for closed fracture with routine healing (principal)
CPT/HCPCS: 73110

== ENCOUNTER → 2022-03-15 13:24 | Outpatient (CLI) | payer MEDICARE, SELFPAY ==
[2022-03-15 14:53] LABS: Blood Urea Nitrogen 20 mg/dl (7-17); Estimated Glomerular Filt Rate 102 ml/min (>60); GFR (African American) 123 ML/MIN (>60)
== END ==
PROVIDERS: PCP Internal Medicine Adolescent Medicine; Visit Provider Physician Assistant Surgical
DX: Z01.812 Encounter for preprocedural laboratory examination (principal)
CPT/HCPCS: 36415; 82565; 84520

== ENCOUNTER → 2022-03-17 14:23 | Outpatient (CLI) | payer MEDICARE, SELFPAY | PROVIDERS: PCP Internal Medicine Adolescent Medicine; Visit Provider Physician Assistant Surgical | DX: M25.532 Pain in left wrist (principal) ==

== ENCOUNTER 2022-03-24 14:00 | Outpatient (RCR) | payer MEDICARE, SELFPAY ==
--- NOTE | 2022-02-15 11:34 | HMH.OTOPEV ---
OT Inpatient Evaluation Rehab OT Outpatient Eval Start: 02/15/22 11:22 Freq: Status: Active Protocol: Document 02/15/22 11:22 FLO (Rec: 02/15/22 11:34 [id number] E-signed By Gemma Bradford, OT Outpatient Therapy Subjective History Subjective History Pt is a 61 year old female who reports to therapy for initial evaluation to left wrist. Pt explains on 12/12/21 she fell on left side and tried to catch herself with left UE resulting in a left wrist fx. Pt chose non surgical intervention. She was in a a cast for ~ 7 weeks and is now in a wrist cock up brace. Pt is right hand dominant. Pt does have decreased AROM, strength, and director of knowledge management strength at left wrist/ hand. Pt will continue to be seen twice a week in order to address all deficits. 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
--- NOTE | 2022-03-24 14:53 | HMH.RHREAS ---
Rehab Reassessment Rehab OP Re-assessment Start: 03/24/22 14:03 Freq: Status: Active Protocol: Document 03/24/22 14:03 RMESSENCEL (Rec: 03/24/22 14:52 RMARSHALL [id number]) E-signed By Gemma Bradford OT Rehab Re-assessment Subjective Subjective I still have pain on this one side. Pt reports continued pain on ulnar side of left wrist. Objective Objective Notes Pt continues to be seen twice a week in order to address left wrist deficits. Each session, pt engages in AROM, AAROM, and strengthening exercises. Pt also receives PROM manual stretching to left wrist in all planes. Modalities are provided in order to decrease pain/ inflammation. 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 However, pt's pain on ulnar side of wrist continues. At rest she reports her pain at 0/10. When she moves her wrist she rates her pain at 4/10. Pt reports at her last doctors appointment the doctor informed her she also had an Ulnar styloid fracture as well . She was scheduled for a MRI , but becamse claustrophobic and was unable to complete it. Pt is unsure when she returns back to her doctor. Current AROM L wrist Flex: 60 degrees Ext: [address]: 28 degrees UD: 28 degrees Sup: 55 degrees Pro: 75 degrees R hand nursing service administrator strength: 20 [address] goals [address]-5 Goals Not Met See below Revised Goals LT-5 LTG AROM L wrist goals Flex: 70 degrees Ext: [address]: 25 degrees
== END 2022-03-24 14:05 | disposition home or self-care (01) ==
LOC: OT 14:00
PROVIDERS: PCP Internal Medicine Adolescent Medicine; Visit Provider Orthopaedic Surgery
DX: S52.532D Colles' fracture of left radius, subsequent encounter for closed fracture with routine healing (principal)
CPT/HCPCS: 97010; 97014; 97035; 97110; 97140; 97164; 97166; 97530; G0283

== ENCOUNTER 2023-08-23 03:30 | Emergency (ER) | payer MEDICARE, SELFPAY ==
[2023-08-23] VITALS (9 sets, daily range): BP systolic 112–124; BP diastolic 70–78; PULSE 73–86; RESP 12–18; TEMP 36.5–36.7; O2SAT 94–97; BMI 33.2
--- NOTE | 2023-08-23 03:52 | XR_ITS ---
PROCEDURE INFORMATION: Exam: XR Chest Exam date and time: 08/23/2023 4:00 AM Age: 63 years old Clinical indication: Pain; Chest pressure; Additional info: Cp TECHNIQUE: Imaging protocol: Radiologic exam of the chest. Views: 1 view. COMPARISON: CR XR CHEST 2V 02/14/2020 12:44 PM FINDINGS: Lungs: There is mild multifocal bilateral lung scarring. No acute appearing infiltrates are identified. Pleural spaces: Unremarkable. No pleural effusion. No pneumothorax. Heart/Mediastinum: Unremarkable. No cardiomegaly. Bones/joints: Spinal hardware is unchanged. There is scoliosis again identified. IMPRESSION: No significant change or evidence of acute pulmonary process.
--- NOTE | 2023-08-23 03:54 | [facility].EDCP ---
Discharge Plan Disposition Patient Disposition: Home, Self-Care Prescriptions Prescriptions: New prednisone 20 mg tablet 40 mg PO DAILY 5 Days Qty: 10 0RF cefdinir 300 mg capsule 300 mg PO BID 5 Days Qty: 10 0RF No Action albuterol sulfate 90 mcg/actuation aerosol powdr breath activated 2 inh inhalation Q4H hydrochlorothiazide 25 mg tablet 25 mg PO DAILY furosemide [Lasix] 40 mg tablet 40 mg PO BID metoprolol succinate 25 mg tablet extended release 24 hr 25 mg PO DAILY esomeprazole magnesium [Nexium] 20 mg capsule,delayed release(DR/EC) 20 mg PO DAILY potassium chloride 20 mEq tablet extended release 20 meq PO QID montelukast [Singulair] 10 mg tablet 10 mg PO QHS diclofenac sodium [Voltaren Arthritis Pain] 1 % gel 2 g topical TID Qty: 100 2RF Rx Instructions: apply to single elbow, wrist or hand; for hand includes palm/fingers/back of hand [id number] [Trelegy Ellipta] 100-62.5-25 mcg blister with device 1 inh inhalation DAILY Referrals Follow up/Referrals: Sean Galo MD [Primary Care Provider] - See instructions Activity Restrictions/Add. Instructions Additional Instructions/Restrictions: Call your family doctor to establish care for this visit to the emergency department and schedule follow-up within 48 hours to ensure improvement. If you have any worsening of your condition or any other concerning signs or symptoms, return to the emergency department or your primary care doctor for further evaluation. Given history, follow-up with Dr. Laird for further evaluation and management of acute onset chest pain. Clinical Impressions Clinical Impression: Chest pain, Acute exacerbation of chronic obstructive pulmonary disease Discharge ED Provider: Donald Ford [facility] <Do Henriquez MD - Last Filed: 08/23/23 06:15> General Chief Complaint: Chest Pain Stated Complaint: cp Time Seen by Provider: 08/23/23 03:52 Mode of Arrival: EMS Source of Information: Patient and Spouse Limitations: No Limitations Description of Symptoms (Recalled from ER Triage Doc. by RN): Patient reports that she woke from sleep at 0200 with central chest pressure rated 10/10. Patient took 7 81mg ASA at home and had her spouse drive her to the local ambulance service station. There patient recieved 1 sublingual nitroglycerin and was transported to this ER. Patient reports that during the drive here her pain completely resolved. Patient arrived on 2LNC, and does wear 2LNC at home as needed. History of Present Illness HPI narrative: 63-year-old female with history of COPD presents to the ER with concerns of acute onset chest pain. Patient states that woke her up from sleep around 2 AM. She described as central chest pressure rated 10 out of 10. Patient took 7 tablets of 81 mg aspirin at home, when she arrived at the ambulance station, she received 1 sublingual nitroglycerin. Patient was transferred to the ER for further evaluation. Patient states after receiving the nitro her pain completely resolved. She wears 2 L nasal cannula at home as needed for history of COPD. She states she did not have any nausea, vomiting, dizziness, jaw pain, arm pain, radiation of pain to the back, or other associated symptoms. She states she feels normal at this time. Patient denies any history of CT. Related Data Home Medications Medication Instructions Recorded Confirmed albuterol sulfate 90 mcg/actuation 2 inh inhalation Q4H COPD 07/04/17 04/27/22 breath activated powder inhaler esomeprazole magnesium 20 mg 20 mg PO DAILY GERD 07/04/17 04/27/22 capsule,delayed release (Nexium) furosemide 40 mg tablet (Lasix) 40 mg PO BID fluid retention 07/04/17 04/27/22 hydrochlorothiazide 25 mg tablet 25 mg PO DAILY blood pressure 07/04/17 04/27/22 metoprolol succinate 25 mg 25 mg PO DAILY blood pressure 07/04/17 04/27/22 tablet,extended release 24 hr montelukast 10 mg tablet 10 mg PO QHS COPD 07/05/17 04/27/22 (Singulair) potassium chloride 20 mEq 20 meq PO QID Supplement 07/05/17 04/27/22 tablet,extended release fluticasone fur. 100 mcg-umeclid 1 inh inhalation DAILY COPD 07/19/17 04/27/22 62.5 mcg-vilant 25 mcg inhalat.powder (Trelegy Ellipta) Previous Rx's Medication Instructions Recorded diclofenac sodium 1 % topical gel 2 g topical TID #100 grams 04/27/22 (Voltaren Arthritis Pain) cefdinir 300 mg capsule 300 mg PO BID 5 days #10 caps 08/23/23 prednisone 20 mg tablet 40 mg (2 x 20 mg) PO DAILY 5 days 08/23/23 #10 tabs Allergies Allergy/AdvReac Type Severity Reaction Status Date / Time levofloxacin [From Levaquin] Allergy Intermediate I-RASH Verified 04/27/22 11:06 erythromycin base Allergy Mild STOMACH Verified 04/27/22 11:06 PAIN NSAIDS (Non-Steroidal Allergy Mild STOMACH Verified 04/27/22 11:06 Anti-Inflamma PAIN amoxicillin [From AUGMENTIN] Allergy Unknown I-HIVES Verified 04/27/22 11:06 clavulanic acid Allergy Unknown I-HIVES Verified 04/27/22 11:06 [From AUGMENTIN] sulfamethoxazole Allergy Unknown I-HIVES Verified 04/27/22 11:06 [From SEPTRA] trimethoprim [From SEPTRA] Allergy Unknown I-HIVES Verified 04/27/22 11:06 PFSH <Do Henriquez MD - Last Filed: 08/23/23 06:15> PFS Disclaimer: The information contained in this section may have been updated after the patient was seen, as this information can be updated by other users. Social History Smoking Status: Former smoker alcohol intake: never current occupational status: other Travel in the last 8 weeks: None household members: other housing: house caffeine: Yes <Do Henriquez MD - Last Filed: 08/23/23 06:15> ROS Obtained: Yes All systems reviewed & no additional complaints except as documented Constitutional Constitutional: Denies chills, Denies fever(s), Denies headache(s) and Denies weakness Eyes Eyes: Denies change in vision ENT Ears, Nose, Mouth, and Throat: Denies dizziness, Denies headache(s), Denies nasal congestion and Denies sore throat Cardiovascular Cardiovascular: Reports chest pain, Denies dyspnea and Denies leg edema Respiratory Respiratory: Denies cough and Denies dyspnea Gastrointestinal Gastrointestingal: Denies constipation, diarrhea, nausea or vomiting Genitourinary Female Genitourinary: Denies dysuria Musculoskeletal Musculoskeletal: Denies arthralgias, Denies myalgias, Denies numbness and Denies tingling Integumentary/Breasts Skin/Breast: Denies change in pigmentation Neurologic Neurologic: Denies dizziness, Denies headache(s), Denies numbness, Denies tingling and Denies weakness Physical Exam <Do Henriquez MD - Last Filed: 08/23/23 06:15> General General appearance: alert and in no apparent distress Head Head exam: atraumatic and normocephalic Eye Eye exam: Present PERRL and EOMI ENT ENT exam: Present mucous membranes moist Neck Neck exam: Present normal inspection and full ROM Chest Chest inspection: Present symmetric chest wall rise Respiratory Respiratory exam: Present normal lung sounds bilaterally and other (Saturating 95% on 2 L nasal cannula); Absent respiratory distress, wheezes or stridor Cardiovascular Cardiovascular exam: Present regular rate and normal rhythm Abdominal Exam Abdominal exam: Present soft; Absent distention, tenderness, guarding or rebound Extremities Exam Extremities exam: Present full ROM; Absent edema Neurological Exam Neurological exam: Present alert and oriented X3; Absent motor sensory deficit Psychiatric Psychiatric exam: Present normal affect and normal mood Skin Skin exam: Present warm and dry HEART Score <Do Henriquez MD - Last Filed: 08/23/23 06:15> HEART Score HEART Score assessment performed?: Yes History (anamnesis): Moderately suspicious ECG: Normal Age: 45-65 years Risk factors: 1-2 risk factors Troponin: </= normal limit HEART Score: 3 <Donald Ford MD - Last Filed: 08/23/23 07:58> HEART Score HEART Score: 3 Critical Care <Do Henriquez MD - Last Filed: 08/23/23 06:15> Critical Care Time Critical Care Time: No Medical Decision Making <Do Henrqiuez MD - Last Filed: 08/23/23 06:15> [place] Inquiry Pt receiving controlled substance: No Vital Signs Vital Signs: 08/23/23 03:30 08/23/23 03:35 08/23/23 05:00 Temperature 97.7 F Temperature Source Oral Pulse Rate 85 79 Pulse Rate [Left Radial] 84 Respiratory Rate 18 16 Blood Pressure 112/78 115/70 Blood Pressure [Left Arm] 112/78 Blood Pressure Mean 99 85 Blood Pressure Mean [Left Arm] 89 Blood Pressure Source [Left Arm] Automatic Cuff Blood Pressure Position [Left Arm] Sitting 02 Sat by Pulse Oximetry 94 L 94 L 96 Oxygen Delivery Method Nasal Cannula Oxygen Flow Rate (LPM) 2 08/23/23 05:30 08/23/23 06:00 08/23/23 06:30 Temperature Temperature Source Pulse Rate 78 73 86 Pulse Rate [Left Radial] Respiratory Rate 15 13 15 Blood Pressure 117/72 120/75 121/72 Blood Pressure [Left Arm] Blood Pressure Mean 85 90 86 Blood Pressure Mean [Left Arm] Blood Pressure Source [Left Arm] Blood Pressure Position [Left Arm] 02 Sat by Pulse Oximetry 97 95 97 Oxygen Delivery Method Oxygen Flow Rate (LPM) 08/23/23 07:00 08/23/23 07:30 Temperature Temperature Source Pulse Rate 76 78 Pulse Rate [Left Radial] Respiratory Rate 12 15 Blood Pressure 124/74 124/75 Blood Pressure [Left Arm] Blood Pressure Mean Blood Pressure Mean [Left Arm] Blood Pressure Source [Left Arm] Blood Pressure Position [Left Arm] 02 Sat by Pulse Oximetry 97 95 Oxygen Delivery Method Oxygen Flow Rate (LPM) Lab Data Labs: Lab Results 08/23/23 03:45: WBC 9.1, RBC 4.35, Hgb 13.7, Hct 42.6, MCV 98.0, MCH 31.5 H, MCHC 32.1, RDW 13.1, Plt Count 325, MPV 7.9, Neut % (Auto) 71.6, Lymph % (Auto) 21.0, Lane % (Auto) 5.0, Eos % (Auto) 1.4, Baso % (Auto) 1.0, Neut # (Auto) 6.5, Lymph # (Auto) 1.9, Lane # (Auto) 0.5, Eos # (Auto) 0.1, Baso # (Auto) 0.1, Sodium 137, Potassium 3.6, Chloride 102, Carbon Dioxide 29, Anion Gap 9.6, BUN 17, Creatinine 0.50 L, Estimated Creat Clear 70, Estimated GFR 125, Est GFR ( Amer) 151, Glucose 128 H, Calcium 9.6, Total Bilirubin 0.4, AST 48 H, ALT 31, Alkaline Phosphatase 64, Troponin I < 0.01, Total Protein 7.2, Albumin 4.2, Globulin 3.0, Albumin/Globulin Ratio 1.4 08/23/23 06:43: Troponin I < 0.01 08/23/23 03:45 08/23/23 03:45 Response Orders (Tests/Meds): ORDERS Category Date Time Status XR chest portable Stat Exams 08/23/23 03:52 Taken Complete Blood Count Auto Diff Stat Lab 08/23/23 03:45 Completed Comprehensive Metabolic Panel Stat Lab 08/23/23 03:45 Completed Troponin I Q3H Lab 08/23/23 06:43 Completed Troponin I Q3H Lab 08/23/23 10:00 Ordered Troponin I Stat Lab 08/23/23 03:45 Completed ECG Request Stat Y 08/23/23 05:41 Ordered MDM Narrative Medical Decision Narrative: In summary, this 63-year-old female presents to the emergency department today with concerns of chest pain/pressure that woke her from sleep a little less than 2 hours prior to arrival. On initial evaluation patient is hemodynamically stable, afebrile, asymptomatic after having taken aspirin at home and receiving nitroglycerin from EMS. Differential diagnosis includes but is not limited to ACS, pneumothorax, esophageal spasm, electrolyte abnormality, arrhythmia. Patient has no signs or symptoms of COPD exacerbation. I considered PE but patient is not hypotensive, hypoxic, or tachycardic. Extremely low suspicion for this. No recent travel or history of DVT. Based on these concerns, I ordered cardiac workup, chest x-ray. ECG personally interpreted demonstrates normal sinus rhythm, rate 77, normal axis, PA and QTc normal, no STEMI. Repeat ECG personally interpreted demonstrates normal sinus rhythm, rate 72, normal PA, normal QTc, normal axis, no STEMI, no dynamic changes Labs personally reviewed demonstrate no leukocytosis or anemia, CMP without findings of electrolyte abnormality, no kidney dysfunction, slight elevation in AST, nonspecific and nonactionable, initial troponin undetectable at less than 0.01, repeat troponin pending. XR personally interpreted as significant for no pneumothorax, scoliosis and hardware present, no obvious mediastinal abnormality though difficult to interpret due to patient's anatomic abnormalities. Patient was placed in ED observation at [facility] for serial troponins to rule out evolving CT and preclude unnecessary admission. 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 Patient continues to be asymptomatic and is stable, resting comfortably. Patient handed off to Dr. Ford at physician shift change for continued management and disposition pending serial troponins. <Donald Ford MD - Last Filed: 08/23/23 07:58> Vital Signs Vital Signs: 08/23/23 03:30 08/23/23 03:35 08/23/23 05:00 Temperature 97.7 F Temperature Source Oral Pulse Rate 85 79 Pulse Rate [Left Radial] 84 Respiratory Rate 18 16 Blood Pressure 112/78 115/70 Blood Pressure [Left Arm] 112/78 Blood Pressure Mean 99 85 Blood Pressure Mean [Left Arm] 89 Blood Pressure Source [Left Arm] Automatic Cuff Blood Pressure Position [Left Arm] Sitting 02 Sat by Pulse Oximetry 94 L 94 L 96 Oxygen Delivery Method Nasal Cannula Oxygen Flow Rate (LPM) 2 08/23/23 05:30 08/23/23 06:00 08/23/23 06:30 Temperature Temperature Source Pulse Rate 78 73 86 Pulse Rate [Left Radial] Respiratory Rate 15 13 15 Blood Pressure 117/72 120/75 121/72 Blood Pressure [Left Arm] Blood Pressure Mean 85 90 86 Blood Pressure Mean [Left Arm] Blood Pressure Source [Left Arm] Blood Pressure Position [Left Arm] 02 Sat by Pulse Oximetry 97 95 97 Oxygen Delivery Method Oxygen Flow Rate (LPM) 08/23/23 07:00 08/23/23 07:30 Temperature Temperature Source Pulse Rate 76 78 Pulse Rate [Left Radial] Respiratory Rate 12 15 Blood Pressure 124/74 124/75 Blood Pressure [Left Arm] Blood Pressure Mean Blood Pressure Mean [Left Arm] Blood Pressure Source [Left Arm] Blood Pressure Position [Left Arm] 02 Sat by Pulse Oximetry 97 95 Oxygen Delivery Method Oxygen Flow Rate (LPM) Lab Data Labs: Lab Results 08/23/23 03:45: WBC 9.1, RBC 4.35, Hgb 13.7, Hct 42.6, MCV 98.0, MCH 31.5 H, MCHC 32.1, RDW 13.1, Plt Count 325, MPV 7.9, Neut % (Auto) 71.6, Lymph % (Auto) 21.0, Lane % (Auto) 5.0, Eos % (Auto) 1.4, Baso % (Auto) 1.0, Neut # (Auto) 6.5, Lymph # (Auto) 1.9, Lane # (Auto) 0.5, Eos # (Auto) 0.1, Baso # (Auto) 0.1, Sodium 137, Potassium 3.6, Chloride 102, Carbon Dioxide 29, Anion Gap 9.6, BUN 17, Creatinine 0.50 L, Estimated Creat Clear 70, Estimated GFR 125, Est GFR ( Amer) 151, Glucose 128 H, Calcium 9.6, Total Bilirubin 0.4, AST 48 H, ALT 31, Alkaline Phosphatase 64, Troponin I < 0.01, Total Protein 7.2, Albumin 4.2, Globulin 3.0, Albumin/Globulin Ratio 1.4 08/23/23 06:43: Troponin I < 0.01 Response Orders (Tests/Meds): ORDERS Category Date Time Status XR chest portable Stat Exams 08/23/23 03:52 Taken Complete Blood Count Auto Diff Stat Lab 08/23/23 03:45 Completed Comprehensive Metabolic Panel Stat Lab 08/23/23 03:45 Completed Troponin I Q3H Lab 08/23/23 06:43 Completed Troponin I Q3H Lab 08/23/23 10:00 Ordered Troponin I Stat Lab 08/23/23 03:45 Completed ECG Request Stat Y 08/23/23 05:41 Ordered MDM Narrative Medical Decision Narrative: In summary, this 63-year-old female presents to the emergency department today with concerns of chest pain/pressure that woke her from sleep a little less than 2 hours prior to arrival. On initial evaluation patient is hemodynamically stable, afebrile, asymptomatic after having taken aspirin at home and receiving nitroglycerin from EMS. Differential diagnosis includes but is not limited to ACS, pneumothorax, esophageal spasm, electrolyte abnormality, arrhythmia. Patient has no signs or symptoms of COPD exacerbation. I considered PE but patient is not hypotensive, hypoxic, or tachycardic. Extremely low suspicion for this. No recent travel or history of DVT. Based on these concerns, I ordered cardiac workup, chest x-ray. ECG personally interpreted demonstrates normal sinus rhythm, rate 77, normal axis, PA and QTc normal, no STEMI. Repeat ECG personally interpreted demonstrates normal sinus rhythm, rate 72, normal PA, normal QTc, normal axis, no STEMI, no dynamic changes Labs personally reviewed demonstrate no leukocytosis or anemia, CMP without findings of electrolyte abnormality, no kidney dysfunction, slight elevation in AST, nonspecific and nonactionable, initial troponin undetectable at less than 0.01, repeat troponin pending. XR personally interpreted as significant for no pneumothorax, scoliosis and hardware present, no obvious mediastinal abnormality though difficult to interpret due to patient's anatomic abnormalities. Patient was placed in ED observation at [facility] for serial troponins to rule out evolving CT and preclude unnecessary admission. 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 Patient continues to be asymptomatic and is stable, resting comfortably. Patient handed off to Dr. Ford at physician shift change for continued management and disposition pending serial troponins. Logan: I assumed primary responsibility for this patient after signout from previous physician. On my evaluation, patient without acute complaint. 124/74, pulse rate 79, 97% on room air, breathing 17 times a minute. Independent rotation of workup with nonactionable CBC. Chemistry nonactionable. Troponin undetectably low initially. Repeat troponin undetectable. On my evaluation the patient, patient with minimal wheezing, but states that she has had worsening cough in terms of frequency, volume, and character of sputum. Patient states that she is on doxycycline chronically for kidney infections, and for the past 2 days has been taking 2 doses of doxycycline daily instead of just 1 daily, which is her usual. She states that she has been feeling a little better on this, I feel this is appropriate outpatient treatment, however patient is concerned about possible antibiotic resistance given her chronicity of using this medication. Cefdinir to be sent to the pharmacy given numerous allergies. I am also going to prescribe prednisone for the next couple of days for acute COPD exacerbation. Total observation time 3 hours. Because patient at baseline without signs or symptoms of clinical decompensation, deemed appropriate for discharge. Results were relayed to patient who voiced understanding and were agreeable to outpatient management and follow up. I discussed my clinical impression with patient and answered all questions. At this time, the evidence for any other entities in the differential is insufficient to warrant any further testing or ED observation. This was explained as well. Advisory was given that persistent or worsening symptoms require further evaluation. I confirmed the understanding of this discussion.
[2023-08-23 04:00] LABS: Chloride 102 mmol/L (98-107); Potassium 3.6 mmoL/L (3.5-5.1); Sodium 137 mmol/L (136-145)
[2023-08-23 04:01] LABS: Basophils # 0.1 K/mm3 (0-0.2); Eosinophils # 0.1 K/mm3 (0.0-0.4); Eosinophils % 1.4 % (0.1-12.0); Hematocrit 42.6 % (37.0-47.0); Hemoglobin 13.7 g/dL (12.2-16.2); Lymphocytes # 1.9 K/mm3 (0.7-4.5); Mean Corpuscular HGB Conc 32.1 g/dL (31.8-35.4); Mean Corpuscular Hemoglobin 31.5 pg (27.0-31.2); Mean Platelet Volume 7.9 fl (7.4-10.4); Monocytes # 0.5 K/mm3 (0.1-1.0); Neutrophils # 6.5 K/mm3 (1.8-7.8); Neutrophils % 71.6 % (37.0-80.0); Platelet Count 325 K/mm3 (142-424); Red Blood Count 4.35 M/mm3 (4.20-5.40); Red Cell Distribution Width 13.1 % (11.5-17.5); White Blood Count 9.1 K/mm3 (4.8-10.8)
[2023-08-23 04:03] LABS: Alanine Aminotransferase 31 U/L (12-78); Albumin Level 4.2 g/dl (3.5-5.0); Albumin/Globulin Ratio 1.4 (1.1-1.8); Alkaline Phosphatase 64 U/L (38-126); Anion Gap 9.6 mEq/L (5-15); Aspartate Amino Transferase 48 U/L (14-36); Bilirubin,Total 0.4 mg/dl (0.2-1.3); Blood Urea Nitrogen 17 mg/dl (7-17); Carbon Dioxide 29 mmol/L (22.0-30.0); Creatinine Clearance Estimated 70 mL/min (50-200); Estimated Glomerular Filt Rate 125 ml/min (>60); GFR (African American) 151 ML/MIN (>60); Total Protein,Serum 7.2 g/dl (6.3-8.2)
[2023-08-23 04:04] LABS: Calcium 9.6 mg/dl (8.4-10.2); Glucose 128 mg/dl (74-100)
[2023-08-23 04:16] LABS: Troponin I < 0.01 ng/ml (0.00-0.034)
--- NOTE | 2023-08-23 05:46 | ECG_ITS ---
APPROVED REPORT Exam: Resting ECG HR:72 bpm ECG Measurements Heart Rate 72 AXES SD 173 P 52 QRSd 85 QRS 46 QT 388 T 36 QTc 412 Conclusion SINUS RHYTHM WITH SINUS ARRHYTHMIA NORMAL ECG Electronically signed by : CHIKA COY, 08/24/2023 06:49:07
[2023-08-23 07:44] LABS: Troponin I < 0.01 ng/ml (0.00-0.034)
== END 2023-08-23 08:04 | disposition home or self-care (01) ==
PROVIDERS: Emergency Medicine; Emergency Provider Emergency Medicine; PCP Internal Medicine Adolescent Medicine
DX: R07.9 Chest pain, unspecified (principal); J44.1 Chronic obstructive pulmonary disease with (acute) exacerbation; R06.2 Wheezing; Z87.891 Personal history of nicotine dependence
CPT/HCPCS: 71045; 80053; 84484; 85025; 93005; 99284

== ENCOUNTER 2023-10-05 10:08 | Emergency (ER) | payer MEDICARE, SELFPAY ==
[2023-10-05] VITALS (15 sets, daily range): BP systolic 136–177; BP diastolic 74–107; PULSE 63–90; RESP 15–21; TEMP 36.7; O2SAT 95–98; BMI 31.2
--- NOTE | 2023-10-05 10:09 | ECG_ITS ---
APPROVED REPORT Exam: Resting ECG HR:60 bpm ECG Measurements Heart Rate 60 AXES W[place] 161 P 54 QRSd 84 QRS 67 QT 393 T 56 QTc 393 Conclusion SINUS RHYTHM NORMAL ECG UNCONFIRMED REPORT Electronically signed by : SHERLYN ALONSO, 10/05/2023 10:49:31
--- NOTE | 2023-10-05 10:19 | ED_ITS ---
Discharge Plan Disposition Patient Disposition: Xfer Other Condition: Fair Prescriptions Prescriptions: No Action albuterol sulfate 90 mcg/actuation aerosol powdr breath activated 2 inh inhalation Q4H hydrochlorothiazide 25 mg tablet 25 mg PO DAILY furosemide [Lasix] 40 mg tablet 40 mg PO BID metoprolol succinate 25 mg tablet extended release 24 hr 25 mg PO DAILY esomeprazole magnesium [Nexium] 20 mg capsule,delayed release(DR/EC) 20 mg PO DAILY potassium chloride 20 mEq tablet extended release 20 meq PO QID montelukast [Singulair] 10 mg tablet 10 mg PO QHS diclofenac sodium [Voltaren Arthritis Pain] 1 % gel 2 g topical TID Qty: 100 2RF Rx Instructions: apply to single elbow, wrist or hand; for hand includes palm/fingers/back of hand [id number]-[id number] [Trelegy Ellipta] 100-62.5-25 mcg blister with device 1 inh inhalation DAILY prednisone 20 mg tablet 40 mg PO DAILY 5 Days Qty: 10 0RF cefdinir 300 mg capsule 300 mg PO BID 5 Days Qty: 10 0RF Referrals Follow up/Referrals: Provider,Referral, MD [Referring] - See instructions Clinical Impressions Clinical Impression: Acute pancreatitis, Transaminitis Discharge ED Provider: Sha Holm Adult HPI General Chief complaint: Chest Pain Stated complaint: chest pain Time Seen by Provider: 10/05/23 10:19 History of Present Illness HPI narrative: 63-year-old female with past medical history significant for COPD on 2 to 3 L baseline, HTN, scoliosis, CHF, presents today for evaluation concerning central chest pain that is characterized as a sharp/pressure-like sensation onset around 1 AM. Patient denies any inciting events. Denies having any significant cough or congestion, fevers or chills. Her shortness of breath is at baseline. She also reports episode of emesis this morning. Denies any dysuria, hematuria, diarrhea or constipation or any other associated symptoms at this time Related Data Home Medications Medication Instructions Recorded Confirmed albuterol sulfate 90 mcg/actuation 2 inh inhalation Q4H COPD 07/04/17 04/27/22 breath activated powder inhaler esomeprazole magnesium 20 mg 20 mg PO DAILY GERD 07/04/17 04/27/22 capsule,delayed release (Nexium) furosemide 40 mg tablet (Lasix) 40 mg PO BID fluid retention 07/04/17 04/27/22 hydrochlorothiazide 25 mg tablet 25 mg PO DAILY blood pressure 07/04/17 04/27/22 metoprolol succinate 25 mg 25 mg PO DAILY blood pressure 07/04/17 04/27/22 tablet,extended release 24 hr montelukast 10 mg tablet 10 mg PO QHS COPD 07/05/17 04/27/22 (Singulair) potassium chloride 20 mEq 20 meq PO QID Supplement 07/05/17 04/27/22 tablet,extended release fluticasone fur. 100 mcg-umeclid 1 inh inhalation DAILY COPD 07/19/17 04/27/22 62.5 mcg-vilant 25 mcg inhalat.powder (Trelegy Ellipta) Previous Rx's Medication Instructions Recorded diclofenac sodium 1 % topical gel 2 g topical TID #100 grams 04/27/22 (Voltaren Arthritis Pain) cefdinir 300 mg capsule 300 mg PO BID 5 days #10 caps 08/23/23 prednisone 20 mg tablet 40 mg (2 x 20 mg) PO DAILY 5 days 08/23/23 #10 tabs Allergies Allergy/AdvReac Type Severity Reaction Status Date / Time levofloxacin [From Levaquin] Allergy Intermediate I-RASH Verified 10/05/23 10:29 erythromycin base Allergy Mild STOMACH Verified 10/05/23 10:29 PAIN NSAIDS (Non-Steroidal Allergy Mild STOMACH Verified 10/05/23 10:29 Anti-Inflamma PAIN amoxicillin [From AUGMENTIN] Allergy Unknown I-HIVES Verified 10/05/23 10:29 clavulanic acid Allergy Unknown I-HIVES Verified 10/05/23 10:29 [From AUGMENTIN] sulfamethoxazole Allergy Unknown I-HIVES Verified 10/05/23 10:29 [From SEPTRA] trimethoprim [From SEPTRA] Allergy Unknown I-HIVES Verified 10/05/23 10:29 [facility] Disclaimer: The information contained in this section may have been updated after the patient was seen, as this information can be updated by other users. Social History Smoking Status: Former smoker alcohol intake: never current occupational status: other Travel in the last 8 weeks: None household members: other housing: house caffeine: Yes ROS Obtained: Yes All systems reviewed & no additional complaints except as documented Physical Exam General General appearance: alert and in no apparent distress Head Head exam: atraumatic and normocephalic Eye Eye exam: Present normal appearance, PERRL and EOMI ENT ENT exam: Present normal oropharynx and mucous membranes moist Neck Neck exam: Present full ROM; Absent meningismus Respiratory Respiratory exam: Absent respiratory distress, wheezes, stridor or accessory muscle use Cardiovascular Cardiovascular exam: Present normal rhythm Abdominal Exam Abdominal exam: Present soft and tenderness (Mild generalized); Absent distention, guarding, rebound or rigidity Neurological Exam Neurological exam: Present alert, oriented X3 and CN II-XII intact; Absent motor sensory deficit Psychiatric Psychiatric exam: Present normal affect and normal mood Skin Skin exam: Present warm and dry Medical Decision Making Medical Records Medical records reviewed: Yes I reviewed the patient's medical records. [place] Inquiry Pt receiving controlled substance: No [place] was queried for this patient: No Vital Signs: 10/05/23 10:09 10/05/23 10:22 10/05/23 10:30 Temperature 98.0 F Temperature Source Oral Pulse Rate 81 63 Pulse Rate [Left Radial] 63 Respiratory Rate 20 16 20 Blood Pressure 155/96 H 148/83 H Blood Pressure [Right Arm] 165/107 H Blood Pressure Mean [Right Arm] 126 02 Sat by Pulse Oximetry 95 95 96 Oxygen Delivery Method Room Air 10/05/23 11:00 10/05/23 11:30 10/05/23 12:00 Temperature Temperature Source Pulse Rate 67 79 84 Pulse Rate [Left Radial] Respiratory Rate 18 16 16 Blood Pressure 158/87 H 151/92 H 152/88 H Blood Pressure [Right Arm] Blood Pressure Mean [Right Arm] 02 Sat by Pulse Oximetry 96 98 97 Oxygen Delivery Method 10/05/23 12:30 10/05/23 13:15 10/05/23 13:30 Temperature Temperature Source Pulse Rate 90 73 89 Pulse Rate [Left Radial] Respiratory Rate 21 Blood Pressure 170/94 H 136/74 177/99 H Blood Pressure [Right Arm] Blood Pressure Mean [Right Arm] 02 Sat by Pulse Oximetry 98 95 97 Oxygen Delivery Method Room Air Nasal Cannula Room Air Lab Data Lab Results 10/05/23 10:10: WBC 10.9 H, RBC 4.70, Hgb 15.4, Hct 46.2, MCV 98.2, MCH 32.7 H, MCHC 33.3, RDW 13.0, Plt Count 315, MPV 7.7, Neut % (Auto) 87.5 H, Lymph % (Auto) 8.4 L, [place] % (Auto) 3.5, Eos % (Auto) 0.3, Baso % (Auto) 0.3, Neut # (Auto) 9.6 H, Lymph # (Auto) 0.9, [place] # (Auto) 0.4, Eos # (Auto) 0.0, Baso # (Auto) 0.0, Total Counted 100, Neutrophils % (Manual) 86 H, Lymphocytes % (Manual) 12, Monocytes % (Manual) 2, Platelet Estimate Normal, RBC Morphology Normal, Sodium 142, Potassium 3.7, Chloride 101, Carbon Dioxide 35 H, Anion Gap 9.7, BUN 20 H, Creatinine 0.50 L, Estimated Creat Clear 66, Estimated GFR 125, Est GFR ( Amer) 151, Glucose 136 H, Calcium 10.6 H, Total Bilirubin 1.0, AST 388 H*, ALT 235 H, Alkaline Phosphatase 74, Troponin I < 0.01, Total Protein 8.2, Albumin 4.8, Globulin 3.4 H, Albumin/Globulin Ratio 1.4, Lipase 35453 H 10/05/23 10:40: Lactate 0.7 10/05/23 12:35: Urine Color Yellow, Urine Appearance Clear, Urine pH 7.0, Ur Specific [place] 1.015, Urine Protein Negative, Urine Glucose (UA) Negative, Urine Ketones Trace, Urine Blood Negative, Urine Nitrate Negative, Urine Bilirubin 1+ A, Urine Urobilinogen 1.0, Ur Leukocyte Esterase Negative, Urine RBC None, Urine WBC None, Ur Squamous Epith Cells Occasional, Amorphous Sediment 1+, Urine Bacteria 1+ 10/05/23 10:10 10/05/23 10:10 Orders (Tests/Meds): ED MEDICATIONS Generic Name Dose Route Start Last Admin Trade Name Freq PRN Reason Stop Dose Admin Sodium Chloride 10 ml 10/05/23 10:30 Sodium Chloride 0.9% 10ml Flush Syringe IV 11/04/23 10:29 NEEDED PRN Maintain IV Site Discontinued Medications Generic Name Dose Route Start Last Admin Trade Name Freq PRN Reason Stop Dose Admin Hydromorphone HCl 1 mg 10/05/23 13:25 10/05/23 13:27 Hydromorphone 2mg/Ml Syringe IV 10/05/23 13:26 1 mg ONCE ONE Administration Lactated Ringer's 500 mls @ 999 mls/hr 10/05/23 10:28 10/05/23 10:34 Lactated Ringer's 1000 Ml Bag IV 10/05/23 10:58 999 mls/hr .Q31M ONE Administration Lactated Ringer's 500 mls @ 999 mls/hr 10/05/23 11:35 10/05/23 11:40 Lactated Ringer's 1000 Ml Bag IV 10/05/23 12:05 999 mls/hr .Q31M ONE Administration Iopamidol 75 ml 10/05/23 11:33 10/05/23 11:45 Iopamidol-370 (76%);100ml Bottle IV 10/05/23 11:34 75 ml ONCE ONE Administration Morphine Sulfate 2 mg 10/05/23 10:28 10/05/23 10:35 Morphine 2mg/Ml Syringe IV 10/05/23 10:29 2 mg ONCE ONE Administration Morphine Sulfate 4 mg 10/05/23 11:40 10/05/23 11:43 Morphine 4mg/Ml Syringe IV 10/05/23 11:41 4 mg ONCE ONE Administration Ondansetron HCl 4 mg 10/05/23 10:28 10/05/23 10:34 Ondansetron 4mg/2ml Vial IV 10/05/23 10:29 4 mg ONCE ONE Administration Sodium Chloride 10 ml 10/05/23 11:33 10/05/23 11:45 Sodium Chloride 0.9% 10ml Syr (Rad Only) IV 10/05/23 11:34 10 ml ONCE ONE Administration ORDERS Category Date Time Status CT abdomen pelvis w con Stat Cat Scan 10/05/23 10:28 Completed CXR 2 view (NOT portable) [XR chest 2V] Stat Exams 10/05/23 10:28 Completed US RUQ [US abdomen limited] Stat Exams 10/05/23 12:26 Taken CBC w/Auto Diff [Complete Blood Count Auto Diff] Stat Lab 10/05/23 10:10 Completed CMP [Comprehensive Metabolic Panel] Stat Lab 10/05/23 10:10 Completed Lactic Acid Stat Lab 10/05/23 10:40 Completed Lipase Stat Lab 10/05/23 10:10 Completed Trop I [Troponin I] Stat Lab 10/05/23 10:10 Completed Troponin I Q3H Lab 10/05/23 13:30 Ordered Troponin I Q3H Lab 10/05/23 16:30 Ordered UA [Urinalysis and Microscopic] Stat Lab 10/05/23 12:35 Completed Medical Decision Narrative: 63-year-old female with past medical history significant for COPD on 2 to 3 L baseline, HTN, scoliosis, CHF, presents today for evaluation concerning central chest pain that is characterized as a sharp/pressure-like sensation onset around 1 AM. Patient denies any inciting events. Denies having any significant cough or congestion, fevers or chills. Her shortness of breath is at baseline. She also reports episode of emesis this morning. On assessment she was hemodynamically stable and in no acute distress. Afebrile. Chest clear to auscultation bilaterally. Abdomen soft nondistended nontender palpation. She was wearing her baseline home oxygen. Her abdomen was soft and nondistended and was mildly tender generally. Other physical exam vitals unremarkable. Differential diagnoses include but limited to STEMI, NSTEMI, gastritis, gastroenteritis, colitis, UTI, among others. EKG personally interpreted by me. Normal sinus rhythm with a rate of 60 bpm. No ischemic changes. Labs today show a WBC of 10.9. CO2 elevated at 35. Calcium 10.6. Transaminitis with AST of 388, ALT of 235. Alkaline phosphatase of 74. Initial troponin less than 0.01. Lipase 18,128. Chest x-ray showed mild bibasilar atelectasis. CT imaging with findings consistent with acute pancreatitis. Gallbladder is distended with mild biliary ductal dilatation. Patient was initially given 1 L of IV fluids however I did order for a second liter given her significant elevation in lipase. On reassessment patient lor medically stable and in no acute distress. Pain is controlled at this time. I discussed ED workup and results as well as current plan to admit in the setting of acute pancreatitis. She verbalized understanding and agreement with plan. Note I did order a right upper quadrant ultrasound to further assess and it revealed gallbladder wall thickening and biliary ductal dilatation. Given that we do not have gastroenterology with ERCP/MRCP capabilities, I did consult with Dr. Allen at [facility] and discussed management and she has a separate admission. Patient and family agreeable to plan. She was subsequently transferred hemodynamically stable and in no acute distress. Critical Care Critical Care Time Critical Care Time: No
--- NOTE | 2023-10-05 10:22 | PC.NURSE ---
DR ALONSO AT BEDSIDE
--- NOTE | 2023-10-05 10:28 | CT_ITS ---
FINAL REPORT CLINICAL HISTORY: Generalized abdominal pain FINDINGS: CT OF THE ABDOMEN AND PELVIS WITH CONTRAST Axial CT images of the abdomen and pelvis were obtained after the administration of iv contrast. Coronal reformatted images were also obtained and reviewed.This study was performed with techniques to keep radiation doses as low as reasonably achievable (ALARA). Individualized dose reduction techniques using automated exposure control or adjustment of mA and/or kV according to the patient's size were employed. Abdomen: There is atelectasis at the lung bases. The heart is normal in size. The liver parenchyma is homogeneous. The gallbladder is distended with mild wall thickening. There is mild biliary ductal dilatation. There is stranding adjacent to the body and tail of the pancreas consistent with acute pancreatitis. The spleen is unremarkable. No adrenal mass is present. The kidneys are normal, without evidence of mass or hydronephrosis. The aorta is normal in caliber. There is no free fluid or adenopathy. No mass or abnormal fluid collection is seen. Pelvis: The appendix is not well-visualized. The patient is status post hysterectomy. The urinary bladder is unremarkable. No inflammatory process is seen. There is no evidence of mass or adenopathy. There is no evidence of bowel obstruction. There are significant degenerative changes in the lumbar spine with levoscoliosis. IMPRESSION: Findings consistent with acute pancreatitis. Distended gallbladder with mild biliary ductal dilatation. Consider ERCP or MRCP for further evaluation. Reviewed, Interpreted and Dictated by Aaron Garsia III, MD Transcribed by Radha Morejon Authenticated and [facility]
--- NOTE | 2023-10-05 10:28 | XR_ITS ---
FINAL REPORT CLINICAL HISTORY: Precordial chest pain FINDINGS: Two views of the chest were obtained. The heart size and pulmonary vascularity are within normal limits. The mediastinum is normal. There is mild bibasilar atelectasis. There is no pneumothorax. There is dextroscoliosis of the thoracic spine with rods present. IMPRESSION: Mild bibasilar atelectasis. Reviewed, Interpreted and Dictated by Aaron Garsia III, MD Transcribed by Radha Morejon Authenticated and [facility]
[2023-10-05] MEDS: LACTATED RINGERS 1000ML 500 ML 999 ML IV ×2 (10:34→11:40)
[2023-10-05] MEDS: ONDANSETRON 4MG/2ML VIAL 4 MG IV (10:34)
[2023-10-05] MEDS: MORPHINE 2MG/ML SYRINGE 2 MG IV (10:35)
[2023-10-05 10:38] LABS: Basophils % 0.3 % (0.1-2.0); Eosinophils % 0.3 % (0.1-12.0); Hematocrit 46.2 % (37.0-47.0); Hemoglobin 15.4 g/dL (12.2-16.2); Lymphocytes # 0.9 K/mm3 (0.7-4.5); Lymphocytes % 8.4 % (10-50); Mean Corpuscular HGB Conc 33.3 g/dL (31.8-35.4); Mean Corpuscular Hemoglobin 32.7 pg (27.0-31.2); Mean Corpuscular Volume 98.2 fl (81-99); Mean Platelet Volume 7.7 fl (7.4-10.4); Monocytes # 0.4 K/mm3 (0.1-1.0); Monocytes % 3.5 % (1.7-9.3); Neutrophils # 9.6 K/mm3 (1.8-7.8); Neutrophils % 87.5 % (37.0-80.0); Platelet Count 315 K/mm3 (142-424); White Blood Count 10.9 K/mm3 (4.8-10.8)
[2023-10-05 10:49] LABS: Anion Gap 9.7 mEq/L (5-15); Creatinine Clearance Estimated 66 mL/min (50-200); Estimated Glomerular Filt Rate 125 ml/min (>60); GFR (African American) 151 ML/MIN (>60); MANUAL DIFFERENTIAL MANUAL DIFFERENTIAL (MANUAL DIFF)
[2023-10-05 10:59] LABS: Lactic Acid 0.7 mmol/L (0.7-2.1)
[2023-10-05 11:02] LABS: Troponin I < 0.01 ng/ml (0.00-0.034)
--- NOTE | 2023-10-05 11:05 | PC.NURSE ---
patient gone to CT at this time.
[2023-10-05 11:06] LABS: Chloride 101 mmol/L (98-107); Potassium 3.7 mmoL/L (3.5-5.1); Sodium 142 mmol/L (136-145)
[2023-10-05 11:07] LABS: Alanine Aminotransferase 235 U/L (12-78); Albumin Level 4.8 g/dl (3.5-5.0); Albumin/Globulin Ratio 1.4 (1.1-1.8); Alkaline Phosphatase 74 U/L (38-126); Aspartate Amino Transferase 388 U/L (14-36); Blood Urea Nitrogen 20 mg/dl (7-17); Calcium 10.6 mg/dl (8.4-10.2); Carbon Dioxide 35 mmol/L (22.0-30.0); Globulin 3.4 g/dL (1.3-3.2); Glucose 136 mg/dl (74-100); Total Protein,Serum 8.2 g/dl (6.3-8.2)
--- NOTE | 2023-10-05 11:26 | PC.NURSE ---
patient back in room.
--- NOTE | 2023-10-05 11:26 | PC.NURSE ---
PT RETURNED FROM RADIOLOGY
[2023-10-05 11:34] LABS: Lipase 18128 U/L (23-300)
--- NOTE | 2023-10-05 11:35 | PC.NURSE ---
CRITICAL LIPASE RECEIVED FROM GERA IN LAB. PT NAME AND R/V. DR ALOSNO NOTIFIED
--- NOTE | 2023-10-05 11:39 | PC.NURSE ---
DR ALONSO AT BEDSIDE TO UPDATE PT AND FAMILY
[2023-10-05] MEDS: MORPHINE 4MG/ML SYRINGE 4 MG IV (11:43)
[2023-10-05] MEDS: IOPAMIDOL-370 (76%);100ML BOTTLE 75 ML IV (11:45)
[2023-10-05] MEDS: SODIUM CHLORIDE 0.9% 10ML SYR (RAD ONLY) 10 ML IV (11:45)
[2023-10-05 12:04] LABS: Lymphocytes % 12 % (10-50); Monocytes % 2 % (2-9); Neutrophils % 86 % (42-76); Total Cells Counted 100
[2023-10-05 12:05] LABS: Platelet Estimate Normal; RBC Morphology Normal
--- NOTE | 2023-10-05 12:18 | PC.NURSE ---
DR ALONSO ATTEMPTED TO CALL DR BARNES, MOLLY STATES HE WILL CALL BACK
--- NOTE | 2023-10-05 12:23 | PC.NURSE ---
DR ALONSO SPEAKING WITH DR BARNES
--- NOTE | 2023-10-05 12:24 | PC.NURSE ---
DR ALONSO AT BEDSIDE TO UPDATE PT AND FAMILY
--- NOTE | 2023-10-05 12:26 | US_ITS ---
FINAL REPORT CLINICAL HISTORY: RUQ pain, ductal dilatation COMPARISON: None FINDINGS: Sonographic images of the right upper quadrant were obtained. The pancreas is partially obscured.The liver has an unremarkable appearance. There is no evidence of gallstones. Gallbladder wall thickening is noted with wall measuring up to 5 mm. Biliary ductal dilatation is noted with the common duct measuring up to 7 mm. . Limited images of the right kidney are unremarkable. IMPRESSION: Gallbladder wall thickening and biliary ductal dilatation. Recommend MRCP. Reviewed, Interpreted and Dictated by Aaron Garsia III, MD Transcribed by Hedy Faye Authenticated and [facility]
--- NOTE | 2023-10-05 12:29 | PC.NURSE ---
calling for transfer to [facility] for gi doctor
[2023-10-05 12:37] LABS: Microscopic, Urine URINE MICROSCOPIC (MICROSCOPIC)
[2023-10-05 12:40] LABS: Appearance,Urine CLEAR (Clear); Blood, Urine Negative (Negative); Color,Urine YELLOW (Yellow); Glucose,Urine (UA) Negative (Negative); Ketones,Urine TRACE (Negative); Leukocyte Esterase,Urine Negative (Negative); Nitrate,Urine Negative (Negative); Protein,Urine Negative (Negative); Specific Gravity, Urine 1.015 (1.005-1.030)
--- NOTE | 2023-10-05 12:40 | PC.NURSE ---
PT GOING TO ULTRASOUND
--- NOTE | 2023-10-05 12:48 | PC.NURSE ---
[facility] CALLED AND STATES [facility] DOES NOT DO ERCP ALL THE TIME SO TRYING FOR JENY CHEN OR [facility] AND WILL CALL US BACK
--- NOTE | 2023-10-05 13:01 | PC.NURSE ---
[facility] CALLED AND STATES [facility] DOES NOT OFFER GI SERVICES
--- NOTE | 2023-10-05 13:02 | PC.NURSE ---
CALLED [facility] FOR GI WAITING CALL BACK
[2023-10-05 13:04] LABS: Amorphous Sediment,Urine 1+ /lpf; Bacteria,Urine 1+ /lpf; Bilirubin,Urine 1+ (Negative); Squamous Epithelial Cell,Urine Occasional #/hpf (0-5)
[2023-10-05] MEDS: HYDROMORPHONE 2MG/ML SYRINGE 1 MG IV (13:27)
--- NOTE | 2023-10-05 13:37 | PC.NURSE ---
DR ALONSO SPEAKING WITH HOSPITALIST AT [facility]
[2023-10-05 15:54] LABS: Troponin I < 0.01 ng/ml (0.00-0.034)
== END 2023-10-05 16:55 | disposition other institution (70) ==
PROVIDERS: Emergency Provider Emergency Medicine; PCP Internal Medicine Adolescent Medicine
DX: K85.90 Acute pancreatitis without necrosis or infection, unspecified (principal); R07.89 Other chest pain; R74.01 Elevation of levels of liver transaminase levels; R11.10 Vomiting, unspecified; J44.9 Chronic obstructive pulmonary disease, unspecified; I11.0 Hypertensive heart disease with heart failure; I50.30 Unspecified diastolic (congestive) heart failure; Z87.891 Personal history of nicotine dependence; Z99.81 Dependence on supplemental oxygen
CPT/HCPCS: 71046; 74177; 76705; 80053; 81001; 83605; 83690; 84484; 85007; 85025; 85027; 93005; 96374; 96375; 96376; 99285; J1170; J2270; J2405; J7120; Q9967

== ENCOUNTER 2024-12-16 13:30 | Outpatient (CLI) | payer MEDICARE, SELFPAY ==
--- OUTSIDE RECORDS SUMMARY | 2024-07-31 08:30 | XMS_ITS ---
Author Organization [facility] Address [address] [place] [address] Care Team Providers Care Customer Support Consultant Name Role Phone Sean Galo Primary Care Provider REASON FOR VISIT med ck Encounters Encounter Location Date Provider Diagnosis [address] [address] 07/31/2024 Sean Galo Plan Of Treatment No Information Progress Notes * Jeny ALMONTE RDOB: (64 yo F)Acc No.[id number]:07/31/2024 Progress Notes Patient: Jeny HDEZ Provider: Jim Galo MD :1960 A ge:64 Y S ex:Female Date:07/31/2024 Address:[address] [place], [place] [id number] Subjective: * Chief Complaints: * 1 . Med ck. * Medical History: Objective: * Vitals: Assessment: Plan: * Treatment: * * Electronic signature of Mitch Galo MD FAAP on 12/16/2024 at 01:33 PM EDT Sign off status: Pending * Provider: Jim Galo MD Date: 0 07/31/2024 Generated for Printi ng/Faxing/eTransmitting on: 0 12/16/2024 01:33 PM EDT
--- OUTSIDE RECORDS SUMMARY | 2024-11-13 10:00 | XMS_ITS ---
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 Name Role Phone Sean Galo Primary Care Provider [phone] Allergies Allergen (clinical drug ingredient) Drug/Non Drug Allergy documented on EMR Reaction Allergy Type Onset Date Status LEVAQUIN (uncoded) Unknown Allergy A ctive NSAID (uncoded) Unknown Allergy Acti ve SEPTRA (uncoded) hives Allergy Act anil amoxicillin / clavulanate Augmentin Unknown Drug Allergy Active erythromycin Erythromycin Unknown Drug Allergy A ctive Results Component Value Reference Range Notes Rapid Covid/Flu A-B Combo Reviewed date:11/13/2024 02:44:48 PM Interpretation: Performing Lab: Notes/Report: Rapid Covid pos Flu A neg Flu B net REASON FOR VISIT positive for covid, cough , S.O.A , fever , wheezing , body aches , chills Medications Medication SIG (Take, Route, Frequency, Duration) Notes Start Date End Date Status Metoprolol Succinate ER 25 mg TAKE 1 TABLET 1 TIME EACH DAY; Duration: 90 Active Fluticasone Propionate 50 MCG/ACT 1 spray(s) intranasally once a day; Duration: 30 day(s) Active Bumetanide 2 MG 1 tab(s) orally once a day; Duration: 90 days Active Breztri Aerosphere 160-9-4.8 MCG/ACT 2 puffs Inhalation Twice a day; Duration: 30 days 07/30/2024 Active HYDROcodone-Acetamin ophen 7.5-325 MG 1 tab(s) orally every 6 hours; Duration: 30 days 10/16/2024 Active Albuterol Sulfate HFA 108 (90 Base) MCG/ACT INHALE 2 PUFFS EVERY 6 HOURS; Duration: 30 Active predniSONE 20 MG 3 tabs orally once a day for two days, then 2 daily for 2 days, then one daily for two days; Duration: 6 day(s) 11/13/2024 Active buPROPion HCl ER (XL) 150 MG 1 tab(s) orally in am; Duration: 90 days 05/29/2024 Active Topiramate 100 MG 1 tab(s) orally at bedtime; Duration: 90 days 05/29/2024 Active Ipratropium-Albutero l 0.5-2.5 (3) MG/3ML 3 mL by nebulizer three times daily; Duration: 90 days 05/29/2024 Active Cefdinir 300 MG one capsule Orally twice a day; Duration: 7 days 11/13/2024 Active Klor-Con M20 20 MEQ one tab orally twice daily; Duration: 90 days Active Pantoprazole Sodium 40 MG 1 tab(s) orally once a day; Duration: 90 days Active Montelukast Sodium 10 MG 1 tab(s) orally once a day; Duration: 90 days Active Ipratropium-Albutero l 0.5-2.5 (3) MG/3ML 3 mL inhaled 3 times daily; Duration: 90 days Active OXYLITE OXYGEN DIRECTED DX: COPD DIRECTED *Please review for potential replacement for e-prescription and drug interaction check* 08/20/2016 Active Aspirin 81 MG 1 tab(s) orally once a day Active OXYGEN CONCENTRATOR 3 LITER 2L *Please review for potential replacement for e-prescription and drug interaction check* Active guaiFENesin ER 1200 MG 1 tab(s) orally every 12 hours Active Vital Signs Temperature 98.3 degrees Fahrenheit 11/14/19 25 Heart Rate 105 /min 11/13/2024 Blood pressure systolic 118 mm Hg 11/14/19 25 Blood pressure diastolic 62 mm Hg 025 Height 5 ft in 11/13/2024 Weight 169 lbs 11/13/2024 BMI 33 kg/m2 11/13/2024 86% on 5L Encounters Encounter Location Date Provider Diagnosis [place] [address] [address] 11/13/2024 Sean Galo Subacute cough R05.2 ; COPD with acute exacerbation J44.1 ; Acute bronchitis, unspecified organism J20.9 and COVID-19 U07.1 Assessments Encounter Date Diagnosis (ICD Code) Assessment Notes Treatment Notes Treatment Clinical Notes Section Notes 11/13/2024 Subacute cough (ICD-10 - R05.2) Wheezing and crackles in the face with documented viral pneumonitis/COV ID. Will treat with cefdinir and steroids as noted. Strict return precautions noted as below.Promethaz ine called in, can use as needed 11/13/2024 COPD with acute exacerbation (ICD-10 - J44.1) 11/13/2024 Acute bronchitis, unspecified organism (ICD-10 - J20.9) COVID and flu testing done because of community prevalence. Positive test. See notes below 11/13/2024 COVID-19 (ICD-10 - U07.1) Discussed supportive care for COVID-19. Paxlovid not an option in her case. Discussed return criteria to the ER. She has pulse oximetry at home, follow-up on to see if pulse ox is better, currently doing well on 4 L. She is able to do this at home with her home supply Plan Of Treatment Medication Medication Name Sig Start Date Stop Date Notes predniSONE 20 MG 3 tabs orally once a day for two days, then 2 daily for 2 days, then one daily for two days; Duration: 6 day(s) 11/13/2024 Cefdinir 300 MG one capsule Orally t wice a day; Duration: 7 days 11/13/2024 Treatment Notes Assessment Notes Subacute cough Wheezing and crackles in the face with documented viral pneumonitis/COVID. Will treat with cefdinir and steroids as noted. Strict return precautions noted as below.Promethazine called in, can use as needed Acute bronchitis, unspecified organism COVID and flu testing done because of community prevalence. Positive test. See notes below COVID-19 Discussed supportive care for COVID-19. Paxlovid not an option in her case. Discussed return criteria to the ER. She has pulse oximetry at home, follow-up on to see if pulse ox is better, currently doing well on 4 L. She is able to do this at home with her home supply Next Appt Details Follow Up: prn, Reason: Progress Notes * Jeny ALMONTE RDOB: 1 (64 yo F)Acc No.[id number]:11/13/2024 Progress Notes Patient: Jeny HDEZ Provider: Jim Galo MD :1960 A ge:64 Y S ex:Female Date:11/13/2024 Address:[address] [place], [place] [id number] Subjective: * Chief Complaints: * 1 . Positive for covid. 2. cough , S.O.A , fever , wheezing , body aches , chills. * HPI: g en: History as above, felt bad 4 days ago, malaise, low-grade fever, then developed a cough 3 days ago. Did a COVID test at home that was positive, has been self treating with rest and fluids, using her oxygen, felt tight today, called for medicines and I thought she needed to be seen. Evaluated in the office, alert. See notes below. * Medical History: C OPD, SCOLIOSIS, Hypertension, Pneumonia, Idiopathic scoliosis and kyphoscoliosis, Recurrent UTI, Osteopenia on dexa 11/20. treatment recommended, Cologuard negative 02/22, Distal radius fracture 01/2022, Pancreatitis secondary to gallstones/cholecystitis, Atrial fibrillation. * Medications: T aking Aspirin 81 MG Tablet Delayed Release 1 tab(s) orally once a day , Taking guaiFENesin ER 1200 MG Tablet Extended Release 12 Hour 1 tab(s) orally every 12 hours , Taking OXYGEN CONCENTRATOR 3 LITER , Notes to Pharmacist: 2L *Please review for potential replacement for e-prescription and drug interaction check*, Taking OXYLITE OXYGEN DIRECTED DX: COPD DIRECTED , Notes to Pharmacist: *Please review for potential replacement for e-prescription and drug interaction check*, Taking Ipratropium-Albuterol 0.5-2.5 (3) MG/3ML Solution 3 mL inhaled 3 times daily , Taking Pantoprazole Sodium 40 MG Tablet Delayed Release 1 tab(s) orally once a day , Taking Klor-Con M20 20 MEQ Tablet Extended Release one tab orally twice daily , Taking Montelukast Sodium 10 MG Tablet 1 tab(s) orally once a day , Taking buPROPion HCl ER (XL) 150 MG Tablet Extended Release 24 Hour 1 tab(s) orally in am , Taking Topiramate 100 MG Tablet 1 tab(s) orally at bedtime , Taking Ipratropium-Albuterol 0.5-2.5 (3) MG/3ML Solution 3 mL by nebulizer three times daily , Taking Breztri Aerosphere 160-9-4.8 MCG/ACT Aerosol 2 puffs Inhalation Twice a day , Taking Albuterol Sulfate HFA 108 (90 Base) MCG/ACT Aerosol Solution INHALE 2 PUFFS EVERY 6 HOURS , Taking HYDROcodone-Acetaminophen 7.5-325 MG Tablet 1 tab(s) orally every 6 hours , Taking Metoprolol Succinate ER 25 mg Tablet Extended Release 24 Hour TAKE 1 TABLET 1 TIME EACH DAY , Taking Bumetanide 2 MG Tablet 1 tab(s) orally once a day , Taking Fluticasone Propionate 50 MCG/ACT Suspension 1 spray(s) intranasally once a day , Discontinued Nystatin 518931 UNIT/GM Cream 1 application Externally 3 times a day , Discontinued Diflucan 100 MG Tablet 1 tablet Orally daily , Discontinued Doxycycline Hyclate 100 MG Capsule 1 cap(s) orally daily , Discontinued Promethazine-DM 6.25-15 MG/5ML Syrup 5 mL as needed Orally every 6 hrs , Medication List reviewed and reconciled with the patient * Allergies: E rythromycin, LEVAQUIN, Augmentin, NSAID, SEPTRA: hives. Objective: * Vitals: N urse: dw, Pain: 5, Temp: 98.3, RR: 20, HR: 105, BP: 118/62, Ht: 5 ft, Wt: 169, BMI:33. 86% on 5L. * Examination: G eneral Examination: I nitially on no oxygen and her O2 saturation 83%. Placed on 4 L and it came up to 94% after resting. Comfortable. Expiratory wheezing and rhonchi noted. Oropharynx clear, well-hydrated. Alert. No edema noted. Assessment: * Assessment: 1. C OPD with acute exacerbation - J44.1 (Primary) 2 . S ubacute cough - R05.2 3 . A cute bronchitis, unspecified organism - J20.9 4 . C OVID-19 - U07.1 Plan: * Treatment: 2. S ubacute cough L AB: Rapid Covid/Flu A-B Combo (Collection Date & Time - 11/13/2024) Value Reference Range R apid Covid pos * F sanjay A neg * F sanjay B net Notes: Wheezing and crackles in the face with documented viral pneumonitis/COVID. Will treat with cefdinir and steroids as noted. Strict return precautions noted as below.Promethazine called in, can use as needed??3.?Acute bronchitis, unspecified organism? Notes: COVID and flu testing done because of community prevalence. Positive test. See notes below??4.?COVID-19? Notes: Discussed supportive care for COVID-19. Paxlovid not an option in her case. Discussed return criteria to the ER. She has pulse oximetry at home, follow-up on to see if pulse ox is better, currently doing well on 4 L. She is able to do this at home with her home supply?? * Procedure Codes: 8 7636 RAPID COVID/FLU A & B COMBO, Modifiers: QW , [address] PULSE OXIMETRY, G2211 Complex e/m visit add on * Follow Up: p rn * * Sign off status: Completed true * Provider: Jim Galo MD Date: 0 11/13/2024 Generated for Marioi ng/Falaurelg/eTransmitting on: 0 12/16/2024 01:33 PM EDT History and Physical Notes * HPI (History of Present Illness) Category Sub-Category Detail Notes Category Not es gen History as above, felt bad 4 days ago, malaise, low-grade fever, then developed a cough 3 days ago. Did a COVID test at home that was positive, has been self treating with rest and fluids, using her oxygen, felt tight today, called for medicines and I thought she needed to be seen. Evaluated in the office, alert. See notes below Examination Category Sub-Category Detail Notes Category Not es General Examination Initially on no oxygen and her O2 saturation 83%. Placed on 4 L and it came up to 94% after resting. Comfortable. Expiratory wheezing and rhonchi noted. Oropharynx clear, well-hydrated. Alert. No edema noted.
--- OUTSIDE RECORDS SUMMARY | 2024-11-15 10:15 | XMS_ITS ---
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 Name Role Phone Sean Galo Primary Care Provider Allergies Allergen (clinical drug ingredient) Drug/Non Drug Allergy documented on EMR Reaction Allergy Type Onset Date Status LEVAQUIN (uncoded) Unknown Allergy A ctive NSAID (uncoded) Unknown Allergy Acti ve SEPTRA (uncoded) hives Allergy Act anil amoxicillin / clavulanate Augmentin Unknown Drug Allergy Active erythromycin Erythromycin Unknown Drug Allergy A ctive REASON FOR VISIT 2 day f/u - wheezing , cough, Rt knee pain, refill on norco, discuss anxiety med Medications Medication SIG (Take, Route, Frequency, Duration) Notes Start Date End Date Status Metoprolol Succinate ER 25 mg TAKE 1 TABLET 1 TIME EACH DAY; Duration: 90 Active Bumetanide 2 MG 1 tab(s) orally once a day; Duration: 90 days Active predniSONE 20 MG 3 tabs orally once a day for two days, then 2 daily for 2 days, then one daily for two days; Duration: 6 day(s) 11/13/2024 Active Fluticasone Propionate 50 MCG/ACT 1 spray(s) intranasally once a day; Duration: 30 day(s) Active Cefdinir 300 MG one capsule Orally twice a day; Duration: 7 days 11/13/2024 Active Albuterol Sulfate HFA 108 (90 Base) MCG/ACT INHALE 2 PUFFS EVERY 6 HOURS; Duration: 30 Active Diclofenac Sodium 3 % 1 application Externally 3 times a day; Duration: 30 days 11/15/2024 Active HYDROcodone-Acetamin ophen 7.5-325 MG 1 tab(s) orally every 6 hours; Duration: 30 days 11/15/2024 Active Ipratropium-Albutero l 0.5-2.5 (3) MG/3ML 3 mL by nebulizer three times daily; Duration: 90 days 05/29/2024 Active Breztri Aerosphere 160-9-4.8 MCG/ACT 2 puffs Inhalation Twice a day; Duration: 30 days 07/30/2024 Active Montelukast Sodium 10 MG 1 tab(s) orally once a day; Duration: 90 days Active buPROPion HCl ER (XL) 150 MG 1 tab(s) orally in am; Duration: 90 days 05/29/2024 Active Pantoprazole Sodium 40 MG 1 tab(s) orally once a day; Duration: 90 days Active Klor-Con M20 20 MEQ one tab orally twice daily; Duration: 90 days Active Topiramate 100 MG 1 tab(s) orally at bedtime; Duration: 90 days 05/29/2024 Active OXYLITE OXYGEN DIRECTED DX: COPD DIRECTED *Please review for potential replacement for e-prescription and drug interaction check* 08/20/2016 Active Ipratropium-Albutero l 0.5-2.5 (3) MG/3ML 3 mL inhaled 3 times daily; Duration: 90 days Active guaiFENesin ER 1200 MG 1 tab(s) orally every 12 hours Active OXYGEN CONCENTRATOR 3 LITER 2L *Please review for potential replacement for e-prescription and drug interaction check* Active Aspirin 81 MG 1 tab(s) orally once a day Active Social History Smoking: Question Answer Notes How long has it been since you last smoked? 1-5 years Section Notes: Lives with spouse, children, and grandchildren Vital Signs Temperature 98.7 degrees Fahrenheit 11/16/19 25 Heart Rate 84 /min 11/15/2024 Blood pressure systolic 116 mm Hg 11/16/19 25 Blood pressure diastolic 72 mm Hg 025 Height 5 ft in 11/15/2024 Weight 169 lbs 11/15/2024 BMI 33 kg/m2 11/15/2024 Encounters Encounter Location Date Provider Diagnosis [place] [address] [address] 11/15/2024 Sean Galo COPD with acute exacerbation J44.1 ; Right knee pain, unspecified chronicity M25.561 ; Morbid obesity E66.01 and Idiopathic scoliosis and kyphoscoliosis M41.20 Assessments Encounter Date Diagnosis (ICD Code) Assessment Notes Treatment Notes Treatment Clinical Notes Section Notes 11/15/2024 COPD with acute exacerbation (ICD-10 - J44.1) pulse ox at 96% on 3L of O2 measured in office today She says her o2 was 91% at home this morning doing well on current regimine of cefdinir and prednisone 11/15/2024 Right knee pain, unspecified chronicity (ICD-10 - M25.561) Pt advised to use volteren gel TID on right knee and get a brace for support She is to finishe her course of prednisone given for copd exaceration and if no pain relief after topical gel and brace, discuss physical therapy at next visit 11/15/2024 Morbid obesity (ICD-10 - E66.01) Weight loss of about 12 lbs on topiramax and wellbutrin f/u in 3-4 weeks for dose adjustments 11/15/2024 Idiopathic scoliosis and kyphoscoliosis (ICD-10 - M41.20) Patient has been compliant with our office and [place] regulations r.e. meds. No concerns on my part about diversion or misuse. Labs and [facility] reports reviewed and are appropriate. Plan Of Treatment Medication Medication Name Sig Start Date Stop Date Notes Diclofenac Sodium 3 % 1 application Exte rnally 3 times a day; Duration: 30 days 11/15/2024 HYDROcodone-Acetaminophen 7.5-325 MG 1 tab(s) orally every 6 hours; Duration: 30 days 11/15/2024 Treatment Notes Assessment Notes COPD with acute exacerbation pulse ox at 96% on 3L of O2 measured in office today She says her o2 was 91% at home this morning doing well on current regimine of cefdinir and prednisone Right knee pain, unspecified chronicity Pt advised to use volteren gel TID on right knee and get a brace for support She is to finishe her course of prednisone given for copd exaceration and if no pain relief after topical gel and brace, discuss physical therapy at next visit Morbid obesity Weight loss of about 12 lbs on topiramax and wellbutrin f/u in 3-4 weeks for dose adjustments Idiopathic scoliosis and kyphoscoliosis Patient has been compliant with our office and [place] regulations r.e. meds. No concerns on my part about diversion or misuse. Labs and [facility] reports reviewed and are appropriate. Next Appt Details Follow Up: prn, Reason: Progress Notes * Jeny ALMONTE RDOB: 1 (64 yo F)Acc No.[id number]:11/15/2024 Progress Notes Patient: Jeny HDEZ Provider: Jim Galo MD :1960 A ge:64 Y S ex:Female Date:11/15/2024 Address:[address] [place] [address], [id number] Subjective: * Chief Complaints: * 1 . 2 day f/u - wheezing , cough. 2. Rt knee pain. 3. Refill on norco. 4. Discuss anxiety med. * HPI: g en: Mrs. Fermin presents for a follow up after being diagnosed with covid. She is still taking cefdinir and prednisone and has been breathing much better and has had less of a cough. She has been checking her pulse ox at home and it was at 91% this morning. She needs a refill on norco She has been having pain in her right knee. She denies any trauma to the knee but states it hurts after standing or sitting for a while. She has been using a roll on pain reliever on the knee for the pain. * Medical History: C OPD, SCOLIOSIS, Hypertension, Pneumonia, Idiopathic scoliosis and kyphoscoliosis, Recurrent UTI, Osteopenia on dexa 11/20. treatment recommended, Cologuard negative 02/22, Distal radius fracture 01/2022, Pancreatitis secondary to gallstones/cholecystitis, Atrial fibrillation. * Surgical History: b ack surgery-scoliosis 1980, gynecological surgery , hysterectomy , tonsillectomy , appendectomy , Cholecystectomy 10/09/23. * Hospitalization/Major Diagno stic Procedure: a pat surgeries , pneumonia , pneumonia 08/2016, [facility] 10/05/23-10/14/23. * Family History: F ather: , lung ca, diagnosed with Cancer, Heart Disease. M other: , diagnosed with Hypertension. P aternal Grand Father: . P aternal Grand Mother: , diagnosed with Diabetes. M aternal Grand Father: . M aternal Grand Mother: , diagnosed with Hypertension, Heart Disease. S georgiana: alive, uterine ca, diagnosed with Cancer. Estela lopez: alive. 4 sister(s) . 1 son(s) , 1 daughter(s) - healthy. . * Social History: S moking H ow long has it been since you last smoked? 1 -5 years. R ecreational drug use: no. Exercise: no. Home smoke detector use: yes. Caffeine: yes, 2 cups coffee and 1 glass tea daily. Living Will: No. Alcohol: no. Sexually active: yes. Travel outside [place]: no. Occupation: disabled. Lives with spouse, children, and grandchildren. * Medications: T aking Aspirin 81 MG [...] 1 spray(s) intranasally once a day , Taking Cefdinir 300 MG Capsule one capsule Orally twice a day , Taking predniSONE 20 MG Tablet 3 tabs orally once a day for two days, then 2 daily for 2 days, then one daily for two days , Medication List reviewed and reconciled with the patient * Allergies: E rythromycin, LEVAQUIN, Augmentin, NSAID, SEPTRA: hives. Objective: * Vitals: N urse: dw, Pain: 9, Temp: 98.7, RR: 20, HR: 84, BP: 116/72, Ht: 5 ft, Wt: 169, BMI:33. * Examination: G eneral Examination: General P leasant and Cooperative, NAD on RA,. Lungs: L CTAB, No wheezes, crackles or rhonchi, Good air movement,. K nee / Fletcher: Knee: r ight knee pain ttp to medial aspect of knee. positive kings test. Assessment: * Assessment: 1. C OPD with acute exacerbation - J44.1 (Primary) 2 . R ight knee pain, unspecified chronicity - M25.561 3 . M orbid obesity - E66.01 4 .?Idiopathic scoliosis and kyphoscoliosis - M41.20 Plan: * Treatment: 2. R ight knee pain, unspecified chronicity Start Diclofenac Sodium Gel, 3 %, 1 application, Externally, 3 times a day, 30 days, 80 Gum, Refills 1. Notes: Pt advised to use volteren gel TID on right knee and get a brace for support She is to finishe her course of prednisone given for copd exaceration and if no pain relief after topical gel and brace, discuss physical therapy at next visit 3. M orbid obesity Notes: Weight loss of about 12 lbs on topiramax and wellbutrin f/u in 3-4 weeks for dose adjustments 4. I diopathic scoliosis and kyphoscoliosis Refill HYDROcodone-Acetaminophen Tablet, 7.5-325 MG, 1 tab(s), orally, every 6 hours, 30 days, 120, Refills 0. Notes: Patient has been compliant with our office and [place] regulations r.e. meds. No concerns on my part about diversion or misuse. Labs and [place] reports reviewed and are appropriate. ? * Procedure Codes: G 2211 Complex e/[place], [address] PULSE OXIMETRY * Follow Up: p rn * * Sign off status: Completed true * Provider: Jim Galo MD Date: 0 11/15/2024 Generated for Christopher heredia/Linda/Wilditting on: 0 12/16/2024 01:32 PM EDT History and Physical Notes * HPI (History of Present Illness) Category Sub-Category Detail Notes Category Not es gen Mrs. Fermin presents for a follow up after being diagnosed with covid. She is still taking cefdinir and prednisone and has been breathing much better and has had less of a cough. She has been checking her pulse ox at home and it was at 91% this morning. She needs a refill on norco She has been having pain in her right knee. She denies any trauma to the knee but states it hurts after standing or sitting for a while. She has been using a roll on pain reliever on the knee for the pain. Examination Category Sub-Category Detail Notes Category Not es General Examination Lungs: LCTAB, No wh eezes, crackles or rhonchi, Good air movement, General Pleasant and Coopera tive, NAD on RA, Knee / Fletcher Knee: right knee pain ttp to medial aspect of knee. positive kings test
--- OUTSIDE RECORDS SUMMARY | 2024-12-13 06:00 | XMS_ITS ---
Author Organization [facility] Address [address] [facility] [address] [place] [address] Care Team Providers Care Director Of Pediatric Rehabilitation Name Role Phone Sean Galo Primary Care Provider Allergies Allergen (clinical drug ingredient) Drug/Non Drug Allergy documented on EMR Reaction Allergy Type Onset Date Status LEVAQUIN (uncoded) Unknown Allergy A ctive NSAID (uncoded) Unknown Allergy Acti ve SEPTRA (uncoded) hives Allergy Act anil amoxicillin / clavulanate Augmentin Unknown Drug Allergy Active erythromycin Erythromycin Unknown Drug Allergy A ctive REASON FOR VISIT Rt knee pain - no better, swelling Medications Medication SIG (Take, Route, Frequency, Duration) Notes Start Date End Date Status buPROPion HCl ER (XL) 150 MG 1 tab(s) orally in am; Duration: 90 days 05/29/2024 Active Pantoprazole Sodium 40 MG 1 tab(s) orally once a day; Duration: 90 days Active Montelukast Sodium 10 MG 1 tab(s) orally once a day; Duration: 90 days Active HYDROcodone-Acetamin ophen 7.5-325 MG 1 tab(s) orally every 6 hours; Duration: 30 days 11/15/2024 Active Topiramate 100 MG 1 tab(s) orally at bedtime; Duration: 90 days 05/29/2024 Active Diclofenac Sodium 3 % 1 application Externally 3 times a day; Duration: 30 days 11/15/2024 Active Bumetanide 2 MG 1 tab(s) orally once a day; Duration: 90 days Active Fluticasone Propionate 50 MCG/ACT 1 spray(s) intranasally once a day; Duration: 30 day(s) Active Breztri Aerosphere 160-9-4.8 MCG/ACT 2 puffs Inhalation Twice a day; Duration: 30 days 07/30/2024 Active Albuterol Sulfate HFA 108 (90 Base) MCG/ACT INHALE 2 PUFFS EVERY 6 HOURS; Duration: 30 Active Klor-Con M20 20 MEQ one tab orally twice daily; Duration: 90 days Active Ipratropium-Albutero l 0.5-2.5 (3) MG/3ML 3 mL by nebulizer three times daily; Duration: 90 days 05/29/2024 Active Metoprolol Succinate ER 25 mg TAKE 1 TABLET 1 TIME EACH DAY; Duration: 90 Active OXYLITE OXYGEN DIRECTED DX: COPD DIRECTED [...] 1 tab(s) orally once a day Active Vital Signs Temperature 98 degrees Fahrenheit 12/13/2024 Heart Rate 88 /min 12/13/2024 Blood pressure systolic 132 mm Hg 12/14/19 25 Blood pressure diastolic 68 mm Hg 025 Height 5 ft in 12/13/2024 Weight 170 lbs 12/13/2024 BMI 33.2 kg/m2 12/13/2024 Encounters Encounter Location Date Provider Diagnosis [facility] [address] [address] 12/13/2024 Sean Clover Right medial knee pain M25.561 Assessments Encounter Date Diagnosis (ICD Code) Assessment Notes Treatment Notes Treatment Clinical Notes Section Notes 12/13/2024 Right medial knee pain (ICD-10 - M25.561) Pt was referred to Orthopedics for further evaluation of pt's knee pain complaint. Pt was told to continue utilizing the knee brace for comfort and stabilization. Pt was encouraged to continue using the Volatren gel as needed for pain relief. Pt was encouraged to continue her supportive care measures for comfort. Pt was encouraged to continue to ambulate carefully as tolerated. Plan Of Treatment Treatment Notes Assessment Notes Right medial knee pain Pt was referred t o Orthopedics for further evaluation of pt's knee pain complaint. Pt was told to continue utilizing the knee brace for comfort and stabilization. Pt was encouraged to continue using the Volatren gel as needed for pain relief. Pt was encouraged to continue her supportive care measures for comfort. Pt was encouraged to continue to ambulate carefully as tolerated. Next Appt Details Follow Up: prn, Reason: Progress Notes * Jeny ALMONTE RDOB: [birth year] (64 yo F)Acc No.[id number]:12/13/2024 Progress Notes Patient: Jeny HDEZ Provider: Jim Galo MD :1960 A ge:64 Y S ex:Female Date:12/13/2024 Address:[address] [place], [place] [id number] Subjective: * Chief Complaints: * 1 . Rt knee pain - no better, swelling. * HPI: g en: Gen [age]yo female comes in following up on right knee pain. Pt was seen on 11/15 for right knee pain. At that visit, pt had positive Maxim test and tenderness over medial meniscus of right knee. Pt was placed on Voltaren gel three times daily and asked to wear a knee brace. Pt explains these have not helped her pain. Today, pt explains her pain has worsened and the area is swollen. Pt rates her pain as a 7/10 today. Pt has been utilizing heat packs, Aspercream, and tylenol as needed for pain. Pt reports mild relief with these. Pt explains she has a history of my right hip sometimes catches when I try to stand up from my chair and I have to hobble walk for a few steps and lean inward on my knee . Pt denies any known trauma or injury to her right knee. Pt explains her knee has given out a few times and she has to grab onto a surface to stabilize. Pt denies any falls and has tried to ambulate more cautiously. Pt denies any other new symptoms since last visit. Pt has no other concerns today. . * Medical History: C OPD, SCOLIOSIS, Hypertension, [...] mL inhaled 3 times daily , Taking Klor-Con M20 20 MEQ Tablet Extended Release one tab orally twice daily , Taking Ipratropium-Albuterol 0.5-2.5 (3) MG/3ML Solution 3 mL by nebulizer three times daily , Taking Breztri Aerosphere 160-9-4.8 MCG/ACT Aerosol 2 puffs Inhalation Twice a day , Taking Albuterol Sulfate HFA 108 (90 Base) MCG/ACT Aerosol Solution INHALE 2 PUFFS EVERY 6 HOURS , Taking Metoprolol Succinate ER 25 mg Tablet Extended Release 24 Hour TAKE 1 TABLET 1 TIME EACH DAY , Taking Bumetanide 2 MG Tablet 1 tab(s) orally once a day , Taking Fluticasone Propionate 50 MCG/ACT Suspension 1 spray(s) intranasally once a day , Taking Diclofenac Sodium 3 % Gel 1 application Externally 3 times a day , Taking HYDROcodone-Acetaminophen 7.5-325 MG Tablet 1 tab(s) orally every 6 hours , Taking Pantoprazole Sodium 40 MG Tablet Delayed Release 1 tab(s) orally once a day , Taking Montelukast Sodium 10 MG Tablet 1 tab(s) orally once a day , Taking buPROPion HCl ER (XL) 150 MG Tablet Extended Release 24 Hour 1 tab(s) orally in am , Taking Topiramate 100 MG Tablet 1 tab(s) orally at bedtime , Discontinued Cefdinir 300 MG Capsule one capsule Orally twice a day , Discontinued predniSONE 20 MG Tablet 3 tabs orally once a day for two days, then 2 daily for 2 days, then one daily for two days , Medication List reviewed and reconciled with the patient * Allergies: E rythromycin, LEVAQUIN, Augmentin, NSAID, SEPTRA: hives. Objective: * Vitals: N urse: dw, Pain: 7, Temp: 98, RR: 20, HR: 88, BP: 132/68, Ht: 5 ft, Wt: 170, BMI:33.2. * Examination: G eneral Examination: General P leasant and Cooperative, NAD on RA,. Heart: R egular Rate and Rhythm, no murmur, rubs or gallops. Lungs: L CTAB, No wheezes, crackles or rhonchi, Good air movement,. Peripheral pulses: n ormal (2+) bilaterally. Extremities: R ight knee: tenderness over medial meniscus, negative Mxaim, mild edema noted around knee.. General Appearance: N AD, pleasant. Assessment: * Assessment: 1. R ight medial knee pain - M25.561 (Primary) Plan: * Treatment: * Follow Up: p rn * * Sign off status: Completed true * Provider: Jim Galo MD Date: 12/13/2024 Generated for Christopher heredia/Linda/Wilditting on: 12/16/2024 01:32 PM EDT History and Physical Notes * HPI (History of Present Illness) Category Sub-Category Detail Notes Category Not es gen Gen 64yo female come s in following up on right knee pain. Pt was seen on 11/15 for right knee pain. At that visit, pt had positive Maxim test and tenderness over medial meniscus of right knee. Pt was placed on Voltaren gel three times daily and asked to wear a knee brace. Pt explains these have not helped her pain. Today, pt explains her pain has worsened and the area is swollen. Pt rates her pain as a 7/10 today. Pt has been utilizing heat packs, Aspercream, and tylenol as needed for pain. Pt reports mild relief with these. Pt explains she has a history of my right hip sometimes catches when I try to stand up from my chair and I have to hobble walk for a few steps and lean inward on my knee . Pt denies any known trauma or injury to her right knee. Pt explains her knee has given out a few times and she has to grab onto a surface to stabilize. Pt denies any falls and has tried to ambulate more cautiously. Pt denies any other new symptoms since last visit. Pt has no other concerns today. Examination Category Sub-Category Detail Notes Category Not es General Examination Heart: Regular Rate and Rhythm, no murmur, rubs or gallops Lungs: LCTAB, No wheezes, c rackles or rhonchi, Good air movement, Extremities: Right knee: tenderne ss over medial meniscus, negative Maxim, mild edema noted around knee. General Appearance: NAD, pleasant Peripheral pulses: normal (2+) bilatera lly General Pleasant and Coopera tive, NAD on RA,
--- NOTE | 2024-12-16 13:31 | XR_ITS ---
PROCEDURE INFORMATION: Exam: XR Right Knee Exam date and time: 12/16/2024 1:26 PM Age: 64 years old Clinical indication: Pain; Knee; Right; Additional info: Right knee pain TECHNIQUE: Imaging protocol: Radiologic exam of the right knee. Views: 3 views. COMPARISON: No relevant prior studies available. FINDINGS: Bones/joints: Mild Tricompartmental joint space narrowing and osteophyte formation consistent with degenerative changes. There is no evidence of acute fracture.There is no evidence of malalignment or dislocation. Soft tissues: Normal. IMPRESSION: 1. Mild Tricompartmental joint space narrowing and osteophyte formation consistent with degenerative changes. 2. There is no evidence of acute fracture.There is no evidence of malalignment or dislocation.
--- OUTSIDE RECORDS SUMMARY | 2024-12-16 13:33 | XMS_ITS | Clinical Summary ---
Author Organization [facility] Address [address] [place] [address] Care Team Providers Care Burglar Alarm Assembler Name Role Phone Sean Galo MD Primary Care Provider [phone] Family History Medical History Relation Name Comments Coronary artery disease Other 1 Hypertension Other 2 Other cancer Other 3 Relation Name Status Comments Other 1 Other 2 Other 3 Social History Tobacco Use Types Packs/Day Years Used Date Smoking Tobacco: Former Comments Unknown Sex and Gender Information Value Date Recorded Sex Assigned at Not on file Legal Sex Female 6:15 PM EDT Gender Identity Not on file Sexual Orientation Not on file Last Filed Vital Signs Vital Sign Reading Time Taken Comments Blood Pressure - - Pulse - - Temperature - - Respiratory Rate - - Oxygen Saturation - - Inhaled Oxygen Concentration - - Weight 80.7 kg (178 lb) 04/16/2015 11:24 AM EST Height 152.4 cm (5') 04/16/2015 11:24 AM EST Body Mass Index 34.76 04/16/2015 11:24 AM EST Plan of Treatment Not on file Care Teams Burglar Alarm Assembler Relationship Specialty Start Date End Date Sean Galo MD [address] [place] [address] PCP - General 08/15/20
--- OUTSIDE RECORDS SUMMARY | 2024-12-16 13:33 | XMS_ITS | Clinical Summary ---
Author Organization [facility] Address [address] [facility] [address] [place] [address] Phone Care Team Providers Care Train Braker Name Role Phone Unavailable Unavailable Conditions or Problems No information available. Medications No information available. Medications Administered No information available. Allergies, Adverse Reactions, Alerts No information available. Results No information available. Plan of Care No information available. Procedures No information available. Vital Signs No information available. Immunizations No information available. Advance Directives No information available.
--- OUTSIDE RECORDS SUMMARY | 2024-12-16 13:33 | XMS_ITS | Patient Health Record ---
Author Organization [facility] Address [address] [facility] [address] [place] [address] Care Team Providers Care Rn Paralegal Name Role Phone Sean Galo Primary Care Provider Terese Lainez Unavailable [phone] Migration, Provider Unavailable Unavailable Allergies Allergen (clinical drug ingredient) Drug/Non Drug [...] pos Flu A neg Flu B net VITAMIN B12/FOLATE, SERUM PA RAIN (7065) Reviewed date:01/23/2024 09:38:52 AM Interpretation: Performing Lab:CB, [facility] [address] [facility], [place] AzogPJ[address] Moses Miller Notes/Report: NON-FASTING; NON-FASTING; NON-FASTING; NON-FASTING; NON-FAST FASTING:NO FASTING: NO VITAMIN B12 022 802-3486 pg/mL FOLATE, SERUM 23.3 Reference Range Low: <3.4 Borderline: 3.4-5.4 Normal: >5.4 CBC (INCLUDES DIFF/PLT) (639 9) Reviewed date:01/23/2024 09:38:52 AM Interpretation: Performing Lab:ANUEL, [facility] [address], [facility] CenterWehmZB[address] Moses Miller Notes/Report: NON-FASTING; NON-FASTING; NON-FASTING; NON-FASTING; NON-FAST FASTING:NO FASTING: NO WHITE BLOOD CELL COUNT 9.2 3.8-10.8 Thousand/ uL RED BLOOD CELL COUNT 4.86 3.80-5.10 Million/uL HEMOGLOBIN 14.9 11.7-15.5 g/dL HEMATOCRIT 45.7 35.0-45.0 % MCV 94.0 80.0-100.0 fL MCH 30.7 27.0-33.0 pg MCHC 32.6 32.0-36.0 g/dL For adults, a slight decrease in the calculated MCHC value (in the range of 30 to 32 g/dL) is most likely not clinically significant; however, it should be interpreted with caution in correlation with other red cell parameters and the patient's clinical condition. RDW 11.6 11.0-15.0 % PLATELET COUNT 322 140-400 Thousand/uL MPV 9.5 7.5-12.5 fL ABSOLUTE NEUTROPHILS 6044 7777-5786 cells/uL ABSOLUTE LYMPHOCYTES 2162 850-3900 cells/uL ABSOLUTE MONOCYTES 745 200-950 cells/uL ABSOLUTE EOSINOPHILS 184 15-500 cells/uL ABSOLUTE BASOPHILS 64 0-200 cells/uL NEUTROPHILS 65.7 LYMPHOCYTES 23.5 MONOCYTES 8.1 EOSINOPHILS 2.0 BASOPHILS 0.7 MAGNESIUM (622) Reviewed date:01/23/2024 09:38:52 AM Interpretation: Performing Lab:ANUEL [facility] [address], [facility] CenterBvtiJB[address] Moses Miller Notes/Report: NON-FASTING; NON-FASTING; NON-FASTING; NON-FASTING; NON-FAST FASTING:NO FASTING: NO MAGNESIUM 1.9 1.5-2.5 mg/dL COMPREHENSIVE METABOLIC PANE L (52971) Reviewed date:01/23/2024 09:38:52 AM Interpretation: Performing Lab:ANUEL [facility] [address], [facility] CenterCtheJY[address] Moses Miller Notes/Report: NON-FASTING; NON-FASTING; NON-FASTING; NON-FASTING; NON-FAST FASTING:NO FASTING: NO GLUCOSE 97 65-139 mg/dL Non-fasting reference interval UREA NITROGEN (BUN) 22 7-25 mg/dL CREATININE 0.90 0.50-1.05 mg/dL EGFR 72 > OR = 60 mL/min/1.73m2 BUN/CREATININE RATIO SEE NOTE: 6-22 (calc) Not Reported: BUN and Creatinine are within reference range. SODIUM 141 135-146 mmol/L POTASSIUM 4.4 3.5-5.3 mmol/L CHLORIDE 97 98-110 mmol/L CARBON DIOXIDE 33 20-32 mmol/L CALCIUM 10.0 8.6-10.4 mg/dL PROTEIN, TOTAL 7.3 6.1-8.1 g/dL ALBUMIN 4.6 3.6-5.1 g/dL GLOBULIN 2.7 1.9-3.7 g/dL (calc) ALBUMIN/GLOBULIN RATIO 1.7 1.0-2.5 (calc) BILIRUBIN, TOTAL 0.4 0.2-1.2 mg/dL ALKALINE PHOSPHATASE 74 37-153 U/L AST 21 10-35 U/L ALT 17 6-29 U/L LIPID PANEL, STANDARD (7600) Reviewed date:01/23/2024 09:38:52 AM Interpretation: Performing Lab:ANUEL Split-[facility]amel [address] [facility] HospitalkandiDeborah [facility] Lung CenterJamelQcgtLW[address] Moses Miller Notes/Report: NON-FASTING; NON-FASTING; NON-FASTING; NON-FASTING; NON-FAST FASTING:NO FASTING: NO CHOLESTEROL, TOTAL 196 <200 mg/dL HDL CHOLESTEROL 77 > OR = 50 mg/dL TRIGLYCERIDES 75 <150 mg/dL LDL-CHOLESTEROL 103 Reference range: <100 Desirable range <100 mg/dL for primary prevention; <70 mg/dL for patients with CHD or diabetic patients with > or = 2 CHD risk factors. LDL-C is now calculated using the Srinivas calculation, which is a validated novel method providing better accuracy than the Friedewald equation in the estimation of LDL-C. Tray LUCIO et al. KAVYA. 2013;310(19): 7411-6797 (http://education.Mems-ID.TrumpIT/faq/ERP145) CHOL/HDLC RATIO 2.5 <5.0 (calc) NON HDL CHOLESTEROL 119 <130 mg/dL (calc) For patients with diabetes plus 1 major ASCVD risk factor, treating to a non-HDL-C goal of <100 mg/dL (LDL-C of <70 mg/dL) is considered a therapeutic option. THYROID PANEL WITH TSH (7444 ) Reviewed date:01/23/2024 09:38:52 AM Interpretation: Performing Lab:CB, [facility], Jamel CampbellTqoqDT[address] Moses Miller Notes/Report: NON-FASTING; NON-FASTING; NON-FASTING; NON-FASTING; NON-FAST FASTING:NO FASTING: NO T3 UPTAKE 28 22-35 % T4 (THYROXINE), TOTAL 9.4 5.1-11.9 mcg/dL FREE T4 INDEX (T7) 2.6 1.4-3.8 TSH 0.44 0.40-4.50 mIU/L Medications Medication SIG (Take, Route, Frequency, Duration) Notes Start Date End Date Status Breztri Aerosphere 160-9-4.8 MCG/ACT 2 puffs Inhalation Twice a day; Duration: 30 days 07/30/2024 Active buPROPion HCl ER (XL) 150 MG 1 tab(s) orally in am; Duration: 90 days 05/29/2024 Active Albuterol Sulfate HFA 108 (90 Base) MCG/ACT INHALE 2 PUFFS EVERY 6 HOURS; Duration: 30 Active Klor-Con M20 20 MEQ one tab orally twice daily; Duration: 90 days Active Pantoprazole Sodium 40 MG 1 tab(s) orally once a day; Duration: 90 days Active Ipratropium-Albutero l 0.5-2.5 (3) MG/3ML 3 mL by nebulizer three times daily; Duration: 90 days 05/29/2024 Active Montelukast Sodium 10 MG 1 tab(s) orally once a day; Duration: 90 days Active OXYLITE OXYGEN DIRECTED DX: COPD DIRECTED *Please review for potential replacement for e-prescription and drug interaction check* 08/20/2016 Active Diclofenac Sodium 3 % 1 application Externally 3 times a day; Duration: 30 days 11/15/2024 Active Ipratropium-Albutero l 0.5-2.5 (3) MG/3ML 3 mL inhaled 3 times daily; Duration: 90 days Active HYDROcodone-Acetamin ophen 7.5-325 MG 1 tab(s) orally every 6 hours; Duration: 30 days 12/13/2024 Active guaiFENesin ER 1200 MG 1 tab(s) orally every 12 hours Active OXYGEN CONCENTRATOR 3 LITER 2L *Please review for potential replacement for e-prescription and drug interaction check* Active Bumetanide 2 MG 1 tab(s) orally once a day; Duration: 90 days Active Aspirin 81 MG 1 tab(s) orally once a day Active Fluticasone Propionate 50 MCG/ACT 1 spray(s) intranasally once a day; Duration: 30 day(s) Active Topiramate 100 MG 1 tab(s) orally at bedtime; Duration: 90 days 05/29/2024 Active Metoprolol Succinate ER 25 mg TAKE 1 TABLET 1 TIME EACH DAY; Duration: 90 Active Immunizations Vaccine Route Administration Date Status Comme nts SHINGRIX IM Intramuscular 11/23/2022 Administered SHINGRIX IM Intramuscular 02/22/2023 Administered Prevnar PCV-20 (Pneumococcal conjugate 20) IM Intramuscular 05/24/2023 Administered Influenza-Fluzone 3+years (NON-MEDICARE) IM Intramuscular 01/08/2015 Administered Influenza-Fluzone 3+years (NON-MEDICARE) IM Intramuscular 01/18/2017 Administered Influenza-Fluzone 3+years (NON-MEDICARE) IM Intramuscular 01/03/2018 Administered Influenza (Fluzone)--Medicare only IM Intramuscular 03/02/2016 Administered FLUZONE 6MO - OLDER IM Intramuscular 01/23/2019 Administer ed FLUZONE 6MO - OLDER IM Intramuscular 01/12/2022 Administer ed FLUZONE 6MO - OLDER IM Intramuscular 02/22/2023 Administer ed FLUZONE 6MO - OLDER IM Intramuscular 01/19/2024 Administer ed Flublok IM Intramuscular 02/05/2020 Administered Flublok IM Intramuscular 01/20/2021 Administered Arexvy IM Intramuscular 05/24/2023 Administered Fluvirin--Influenza vaccine 3+ year Unknown 04/09/2011 Administered Fluvirin--Influenza vaccine 3+ year Unknown 02/15/2013 Administered Social History Smoking: Question Answer Notes How long has it been since you last smoked? 1-5 years Section Notes: Lives with spouse, children, and grandchildren Lives with spouse, children, and grandchildren Lives with spouse, children, and grandchildren Lives with spouse, children, and grandchildren Lives with spouse, children, and grandchildren Lives with spouse, children, and grandchildren Lives with spouse, children, and grandchildren Lives with spouse, children, and grandchildren Lives with spouse, children, and grandchildren Lives with spouse, children, and grandchildren Lives with spouse, children, and grandchildren Lives with spouse, children, and grandchildren Lives with spouse, children, and grandchildren Lives with spouse, children, and grandchildren Lives with spouse, children, and grandchildren Lives with spouse, children, and grandchildren Lives with spouse, children, and grandchildren Lives with spouse, children, and grandchildren Lives with spouse, children, and grandchildren Lives with spouse, children, and grandchildren Lives with spouse, children, and grandchildren Lives with spouse, children, and grandchildren Lives with spouse, children, and grandchildren Lives with spouse, children, and grandchildren Lives with spouse, children, and grandchildren Lives with spouse, children, and grandchildren Lives with spouse, children, and grandchildren Lives with spouse, children, and grandchildren Lives with spouse, children, and grandchildren Lives with spouse, children, and grandchildren Lives with spouse, children, and grandchildren Lives with spouse, children, and grandchildren Lives with spouse, children, and grandchildren Lives with spouse, children, and grandchildren Lives with spouse, children, and grandchildren Lives with spouse, children, and grandchildren Lives with spouse, children, and grandchildren Lives with spouse, children, and grandchildren Lives with spouse, children, and grandchildren Lives with spouse, children, and grandchildren Lives with spouse, children, and grandchildren Lives with spouse, children, and grandchildren Lives with spouse, children, and grandchildren Lives with spouse, children, and grandchildren Lives with spouse, children, and grandchildren Lives with spouse, children, and grandchildren Lives with spouse, children, and grandchildren Lives with spouse, children, and grandchildren Lives with spouse, children, and grandchildren Lives with spouse, children, and grandchildren Lives with spouse, children, and grandchildren Problems Problem Type SNOMED Code ICD Code Onset Dates Problem Status W/U Status Risk Notes Problem Morbid obesity (disorder) (219649817) Morbid (severe) obesity due to excess calories (E66.01) Active confirmed Problem Chronic pain (69231678) Other chronic pain (G89.29) Active confirmed Problem Morbid obesity (054879053) Morbid obesity (E66.01) Active confirmed Problem Hyperlipidemia (68159173) Hyperlipemia, idiopathic 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) Active confirmed Problem Essential hypertension (32223742) Hypertension, essential (I10) Active confirmed Problem Chronic obstructive pulmonary disease (41774919) COPD with chronic bronchitis and 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) Active confirmed Problem Acute exacerbation of chronic obstructive airways disease (720922455) COPD with acute exacerbation (J44.1) Active confirmed Problem Body mass index 30.00 to 34.99 (484176038107700) BMI 34.0-34.9,adult (Z68.34) Active confirmed Problem Obese class I (859231608892484) BMI 33.0-33.9,adult (Z68.33) Active confirmed Problem Abnormal mammogram (738714774) Abnormal mammogram (R92.8) Active confirmed Problem Lymphedema (719242862) Lymphedema of both lower extremities (I89.0) Active confirmed Problem Peripheral edema (96085610) Peripheral edema (R60.9) Active confirmed Problem Obese class II (590728695999838) BMI 35.0-35.9,adult (Z68.35) Active confirmed Problem Idiopathic scoliosis and kyphoscoliosis (M41.20) Active confirmed Problem Chronic diastolic heart failure (210754860) Diastolic CHF, chronic (I50.32) Active confirmed Problem Allergic rhinitis caused by pollen (28543606) Seasonal allergic rhinitis due to pollen (J30.1) Active confirmed Problem Atrial fibrillation (07775355) PAF (paroxysmal atrial fibrillation) (I48.0) Active confirmed Problem Obese class II (704964138481564) Body mass index [BMI] 35.0-35.9, adult (Z68.35) Active confirmed Problem History of excision of intestinal structure (705932213) S/P cholecystectomy (Z90.49) Active confirmed Vital Signs Heart Rate 88 /min 12/13/2024 Temperature 98 degrees Fahrenheit 12/13/2024 Oximetry 86 05/08/2024 Blood pressure diastolic 68 mm Hg 12/13/2024 Height 5 ft in 12/13/2024 Blood pressure systolic 132 mm Hg 12/13/2024 Weight 170 lbs 12/13/2024 BMI 33.2 kg/m2 12/13/2024 Encounters Encounter Location Date Provider Diagnosis [facility] [address] [place], [place] [address] 07/07/2024 Provider Migration COPD with chronic bronchitis and emphysema J44.9 ; Idiopathic scoliosis and kyphoscoliosis M41.20 and Obesity, Class II, BMI 35-39.9 E66.812 [facility] [address] [address] 01/19/2024 Sean Galo PAF (paroxysmal atri al fibrillation) I48.0 ; Diastolic CHF, chronic I50.32 ; COPD with chronic bronchitis and emphysema J44.9 ; Hypertension, essential I10 ; Idiopathic scoliosis and kyphoscoliosis M41.20 ; Other malaise R53.81 ; Other fatigue R53.83 and Encounter for immunization Z23 [facility] [address] [address] 05/01/2024 Sean Galo Hypertension, essential I10 ; COPD with chronic bronchitis and emphysema J44.9 ; PAF (paroxysmal atrial fibrillation) I48.0 ; Idiopathic scoliosis and kyphoscoliosis M41.20 and BMI 34.0-34.9,adult Z68.34 [facility] [address] [address] 05/08/2024 Sean Galo COPD with acute exacerbation J44.1 [facility] [address] [address] 05/29/2024 Sean Galo SOB (shortness of breath) R06.02 ; COPD with chronic bronchitis and emphysema J44.9 ; Idiopathic scoliosis and kyphoscoliosis M41.20 ; Peripheral edema R60.9 ; Hypertension, essential I10 ; Obesity, Class II, BMI 35-39.9 E66.812 and Routine medical exam Z00.00 [facility] [address] [address] 08/03/2024 Terese McNees Yeast dermatitis B37 .2 and Loose stools R19.[address] [address] 11/13/2024 Sean Galo Subacute cough R05.2 ; COPD with acute exacerbation J44.1 ; Acute bronchitis, unspecified organism J20.9 and COVID-19 U07.1 [facility] [address] [place] [address] 11/15/2024 Sean Galo COPD with acute exacerbation J44.1 ; Right knee pain, unspecified chronicity M25.561 ; Morbid obesity E66.01 and Idiopathic scoliosis and kyphoscoliosis M41.20 [facility] [address] [place] [address] 12/13/2024 Sena Galo Right medial knee pa in M25.561 [facility] [address] [place] [address] 12/23/2023 Sean Besson Idiopathic scoliosis and kyphoscoliosis M41.20 [facility] [address] [place] [address] 01/20/2024 Sean Besson Idiopathic scoliosis and kyphoscoliosis M41.20 [facility] [address] [place] [address] 02/13/2024 Sean Galo [facility] [address] [place] [address] 02/21/2024 Sean Besson Idiopathic scoliosis and kyphoscoliosis M41.20 [facility] [address] [place] [address] 03/20/2024 Sean Besson Idiopathic scoliosis and kyphoscoliosis M41.20 [facility] [address] [place] [address] 04/11/2024 eSan Galo [facility] [address] [place] [address] 04/19/2024 Sean Besson Idiopathic scoliosis and kyphoscoliosis M41.20 [facility] [address] [place] [address] 05/18/2024 Sean Besson Idiopathic scoliosis and kyphoscoliosis M41.20 [facility] [address] [place] [address] 06/19/2024 Sean Besson Idiopathic scoliosis and kyphoscoliosis M41.20 [facility] [address] [place] [address] 07/19/2024 Sean Besson Idiopathic scoliosis and kyphoscoliosis M41.20 [facility] [address] [place] [address] 07/30/2024 Sean Besson [facility] [address] [address] 08/17/2024 Sean Besson Idiopathic scoliosis and kyphoscoliosis M41.20 [facility] [address] [facility] [address] [place], [place] [address] 09/17/2024 Sean Besson [facility] [address] [address] 09/17/2024 Sean Besson Idiopathic scoliosis and kyphoscoliosis M41.20 [facility] [address] [address] 10/16/2024 Sean Besson Idiopathic scoliosis and kyphoscoliosis M41.20 [facility] [address] [address] 10/25/2024 Sean Besson [facility] [address] [address] 11/12/2024 Sean Besson [facility] [address] [address] 11/26/2024 Seanminna Galo Obesity, Class II, B KS 35-39.9 E66.812 [facility] [address] [address] 12/13/2024 Sean Besson Idiopathic scoliosis and kyphoscoliosis M41.20 Assessments Encounter Date Diagnosis (ICD Code) Assessment Notes Treatment Notes Treatment Clinical Notes Section Notes 12/23/2023 Idiopathic scoliosis and kyphoscoliosis (ICD-10 - M41.20) 01/19/2024 PAF (paroxysmal atrial fibrillation) (ICD-10 - I48.0) EKG confirms sinus rhythm. Continue to stay off Eliquis. Is on low-dose aspirin. Discussed return criteria if she has any symptoms of palpitations or leg swelling 01/19/2024 Diastolic CHF, chronic (ICD-10 - I50.32) Currently euvolemic. Blood pressure under good control. No changes in meds at this point. 01/20/2024 Idiopathic scoliosis and kyphoscoliosis (ICD-10 - M41.20) 02/21/2024 Idiopathic scoliosis and kyphoscoliosis (ICD-10 - M41.20) 03/20/2024 Idiopathic scoliosis and kyphoscoliosis (ICD-10 - M41.20) 04/19/2024 Idiopathic scoliosis and kyphoscoliosis (ICD-10 - M41.20) 05/01/2024 Hypertension, essential (ICD-10 - I10) Chronic. On bumetanide and metoprolol. Continue current regimen. 05/01/2024 COPD with chronic bronchitis and emphysema (ICD-10 - J44.9) Patient reports worsening shortness of breath that has begun to interfere with ADLs. On exam, there are scattered rhonchi; however, she is moving air well bilaterally. Continue current regimen. 05/08/2024 COPD with acute exacerbation (ICD-10 - J44.1) Stop Doxy and do a Z-Morales. Patient has an erythromycin allergy but it is a stomach pain allergy. Discussed this with patient. Do Medrol pack, keep next follow-up appointment 05/18/2024 Idiopathic scoliosis and kyphoscoliosis (ICD-10 - M41.20) 05/29/2024 SOB (shortness of breath) (ICD-10 - R06.02) I think patient's dyspnea is multifactorial, COPD plus body habitus plus obesity. Will add a nebulized LABA/LAMA to her triple inhaler regimen for breakthrough dyspnea and see how this goes. 05/29/2024 COPD with chronic bronchitis and emphysema (ICD-10 - J44.9) 06/19/2024 Idiopathic scoliosis and kyphoscoliosis (ICD-10 - M41.20) 07/07/2024 COPD with chronic bronchitis and emphysema (ICD-10 - J44.9) 07/07/2024 Idiopathic scoliosis and kyphoscoliosis (ICD-10 - M41.20) 07/19/2024 Idiopathic scoliosis and kyphoscoliosis (ICD-10 - M41.20) 08/03/2024 Yeast dermatitis (ICD-10 - B37.2) Given size and failure of antifungal cream will treat with oral and topical antifungals. Keep clean and dry. Use washcloths under breast to keep skin from rubbing together. Once completely healed use deodorant under breasts for prevention. If rash returns recommend adding A1c to upcoming labs. Return precautions discussed 08/03/2024 Loose stools (ICD-10 - R19.5) Start otc metamucil fiber supplement and probiotic daily 08/17/2024 Idiopathic scoliosis and kyphoscoliosis (ICD-10 - M41.20) 09/17/2024 Idiopathic scoliosis and kyphoscoliosis (ICD-10 - M41.20) 10/16/2024 Idiopathic scoliosis and kyphoscoliosis (ICD-10 - M41.20) 11/13/2024 Subacute cough (ICD-10 - R05.2) Wheezing and crackles in the face with documented viral pneumonitis/COVID. Will treat with cefdinir and steroids as noted. Strict return precautions noted as below.Promethazine called in, can use as needed 11/13/2024 COPD with acute exacerbation (ICD-10 - J44.1) 11/15/2024 COPD with acute exacerbation (ICD-10 - [...] brace, discuss physical therapy at next visit 11/26/2024 Obesity, Class II, BMI 35-39.9 (ICD-10 - E66.812) 12/13/2024 Idiopathic scoliosis and kyphoscoliosis (ICD-10 - M41.20) 12/13/2024 Right medial knee pain (ICD-10 - [...] to continue to ambulate carefully as tolerated. 11/15/2024 Morbid obesity (ICD-10 - E66.01) Weight loss of about 12 lbs on topiramax and wellbutrin f/u in 3-4 weeks for dose adjustments 11/13/2024 Acute bronchitis, unspecified organism (ICD-10 - J20.9) COVID and flu testing done because of community prevalence. Positive test. See notes below 05/29/2024 Idiopathic scoliosis and kyphoscoliosis (ICD-10 - M41.20) 05/01/2024 PAF (paroxysmal atrial fibrillation) (ICD-10 - I48.0) Patient reports occasional palpitations. On aspirin and metoprolol. Continue current regimen. 01/19/2024 COPD with chronic bronchitis and emphysema (ICD-10 - J44.9) Remains off cigarettes. Continues to use inhalers 01/19/2024 Hypertension, essential (ICD-10 - I10) 05/01/2024 Idiopathic scoliosis and kyphoscoliosis (ICD-10 - M41.20) Patient states pain is constant and does not improve much with her current pain regimen. She denies issues with constipation. 05/29/2024 Peripheral edema (ICD-10 - R60.9) 11/13/2024 COVID-19 (ICD-10 - U07.1) Discussed supportive care for COVID-19. Paxlovid not an option in her case. Discussed return criteria to the ER. She has pulse oximetry at home, follow-up on to see if pulse ox is better, currently doing well on 4 L. She is able to do this at home with her home supply 11/15/2024 Idiopathic scoliosis and kyphoscoliosis (ICD-10 - M41.20) Patient has been compliant with our office and [place] regulations r.e. meds. No concerns on my part about diversion or misuse. Labs and [place] reports reviewed and are appropriate. 05/29/2024 Hypertension, essential (ICD-10 - I10) 05/01/2024 BMI 34.0-34.9,adult (ICD-10 - Z68.34) Patient has gained 20 pounds in the past 6 months and is bothered by this. Discussed pharmacological options with the patients. She was not comfortable with wellbutrin and Topamax. Discussed GLP-1 agonist with benefits and cons. Patient seemed most intrigued by these options. I gave her a month sample of Wegovy to try. Patient was educated on side effects. Follow-up in 1 month to re-evaluate. 01/19/2024 Idiopathic scoliosis and kyphoscoliosis (ICD-10 - M41.20) Patient has been compliant with our office and [place] regulations r.e. meds. No concerns on my part about diversion or misuse. Labs and [place] reports reviewed and are appropriate. 01/19/2024 Other malaise (ICD-10 - R53.81) Will check labs. Patient fatigue. No stigmata of vitamin deficiency but I will follow labs personally 07/07/2024 Obesity, Class II, BMI 35-39.9 (ICD-10 - E66.812) 05/29/2024 Obesity, Class II, BMI 35-39.9 (ICD-10 - E66.812) Failed phentermine and semaglutide injections with deleterious side effects Will trial Wellbutrin in the morning and Topamax at night to see if we can help her get 5 or 10 pounds off to help with restrictive component to her dyspnea 05/29/2024 Routine medical exam (ICD-10 - Z00.00) Functional status is good in spite of her orthopedic limitations. Continue to do well with her pain medication and good control. 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 Up-to-date with vaccines and needed cancer screening. 01/19/2024 Other fatigue (ICD-10 - R53.83) 01/19/2024 Encounter for immunization (ICD-10 - Z23) Plan Of Treatment Pending Test Test Name Order Date N-CBC 02/07/2007 X ray : Chest 02/07/2007 Urinalysis 02/20/2008 Bone Density 08/06/2008 Mammogram : Diagnostic 01/20/2021 DEXA Hip and Spine - Screening 6 DEXA Hip and Spine - Screening 9 EKG : In House 02/20/2008 Small Bowel Follow Through 04/12/2014 Echocardiogram 07/15/2011 Echocardiogram 06/10/2014 Echocardiogram 07/09/2011 Mammogram : Additional Views 12/08/2018 N-cmp 02/07/2007 Mammogram : Bilateral 06/16/2021 Mammogram : Bilateral 03/19/2016 Mammogram : Bilateral 11/22/2023 H-CBC with AUTO DIFF 10/29/2015 H-BMP 06/24/2014 H-CMP 10/29/2015 H-MAGNESIUM 11/02/2016 H-TSH 11/02/2016 C-HEPATITIS PANEL 10/11/2017 C-URINE CULTURE 11/19/2015 C-DRUG SCREEN 10 PANEL 12/17/2015 TSH 04/06/2022 Urine Culture, Routine 10/30/2014 Urine Culture, Routine 04/17/2015 Urine Culture, Routine 01/06/2016 CBC With Differential/Platelet Lipid Panel 04/06/2022 Pulmonary Function Test- Complete 2018 Physical Therapy : Lymphedema 06/23/2021 Physical Therapy : Lymphedema 10/31/2019 M-Complete Blood Count Auto Diff 020 M-Comprehensive Metabolic Panel 10/29/19 20 VITAMIN D,25-OH,TOTAL,IA [id number]) 024 Future Test Test Name Order Date H-CBC with AUTO DIFF 03/22/2016 H-CMP 03/22/2016 H-LIPID PANEL 03/22/2016 Insurance Providers Payer Name Payer Address Payer Phone Subscriber Number Group Number Insured Name Patient Relationship to Insured Coverage Start Date Coverage End Date [employer] HMO [address] [address] [place] [address] [phone] [id number] Jeny Mathis Self - patient is the insured Medications Administered Medication Instructions Date of Administration Dosage Notes Bumetanide/Bumex 06/10/2014 1 Ceftriaxone 500 02/04/2014 500 Ceftriaxone 500 06/20/2018 500 mg Ceftriaxone 500 03/13/2019 500 mg Triamcinolone Acetonide 40mg Injection 06/20/2018 1 mL Triamcinolone Acetonide 40mg Injection 03/13/2019 1 mL Triamcinolone Acetonide 40mg Injection 04/26/2019 1 mL Kenalog 12/20/2013 1 Kenalog 02/04/2014 1 Kenalog 10/30/2014 1 mL Kenalog 05/30/2015 1 mL Kenalog 12/17/2015 1 mL Medical (General) History Medical History History ICD Code COPD SCOLIOSIS hypertension Pneumonia Idiopathic scoliosis and kyphoscoliosis Recurrent UTI osteopenia on dexa 11/20. treatment recom mended Cologuard negative 02/22 distal radius fracture 01/2022 Pancreatitis secondary to gallstones/cho lecystitis Atrial fibrillation Surgical History Surgery Date(Month/Year) back surgery-scoliosis 1981 gynecological surgery 1980s hysterectomy tonsillectomy appendectomy Cholecystectomy 10/09/23 Hospitalization History Reason Date(Month/Year) [facility] 10/05/23-10/14/23 pneumonia 08/2016 pneumonia above surgeries
--- OUTSIDE RECORDS SUMMARY | 2024-12-16 13:33 | XMS_ITS | Clinical Summary ---
Author Organization [facility] Address [address] [place] [address] Care Team Providers Care Copy Preparer Name Role Phone Sean Galo MD Primary Care Provider [phone] Allergies Active Allergy Reactions Criticality Noted Date Comments Amoxicillin Hives 04/27/2022 Beta lactam allergy details Antibiotic reaction: hives Age at reaction: adult Dose to reaction time: days Reason for antibiotic: other (pneumonia) Epinephrine required for reaction?: no Tolerated antibiotics: other (ceftriaxone) Clavulanic Acid Hives 04/27/2022 Erythromycin Base GI Intolerance Low 04/27/2022 Levofloxacin Rash High 04/27/2022 Nsaids GI Intolerance Low 04/27/2022 Sulfamethoxazole Hives 04/27/2022 Trimethoprim Hives 04/27/2022 Medications albuterol sulfate HFA 108 (90 Base) MCG/ACT inhaler INHALE 2 PUFFS EVERY 6 HOURS 09/29/19 24 Active doxycycline (VIBRAMYCIN) 100 MG capsule TAKE 1 CAPSULE 1 TIME EACH DAY 09/21/19 24 Active fluticasone (FLONASE) 50 MCG/ACT nasal spray SPRAY 1 TIME IN EACH NOSTRIL 1 TIME EACH DAY 09/20/19 24 Active Breztri Aerosphere 160-9-4.8 MCG/ACT aerosol inhaler INHALE 2 PUFFS 2 TIMES EACH DAY 09/29/19 24 Active HYDROcodone-acetami nophen (NORCO) 7.5-325 MG per tablet 08/19/19 24 Active montelukast (SINGULAIR) 10 MG tablet 08/12/19 24 Active potassium chloride ER (K-TAB) 20 MEQ tablet controlled-release ER tablet 08/10/19 24 Active guaiFENesin (MUCINEX) 600 MG 12 hr tablet Take 2 tablets by mouth 2 (Two) Times a Day. Active Probiotic Product (Risaquad-2) capsule capsule Take 1 capsule by mouth Daily. Active apixaban (ELIQUIS) 5 MG tablet tabletIndications:A trial Fibrillation - requiring full anticoagulation Take 1 tablet by mouth Every 12 (Twelve) Hours as directed for Atrial Fibrillation 60 tablet 4 12:06 PM EDT 10/14/19 24 Active metoprolol succinate XL (TOPROL-XL) 50 MG 24 hr tablet Take 1 tablet by mouth Daily. 30 tablet 4 12:06 PM EDT 10/15/19 24 Active Additional Information Patient taking differently: 25 mgOral Every 24 Hours Scheduled, Reported on 12/21/2023 bumetanide (BUMEX) 2 MG tablet Take 1 tablet by mouth 2 (Two) Times a Day for 5 days; THEN decrease to 1 tablet Daily thereafter 45 tablet 4 12:06 PM EDT 10/14/19 24 Active pantoprazole (PROTONIX) 40 MG EC tablet Take 1 tablet by mouth Every Morning. 30 tablet 4 12:06 PM EDT 10/15/19 24 Active Active Problems Problem Noted Date Diagnosed Date Paroxysmal atrial fibrillation 10/11/2023 Gallstone pancreatitis 10/05/2023 COPD (chronic obstructive pulmonary disease) 06/2023 HTN (hypertension) 10/05/2023 Chronic respiratory failure with hypoxia 024 History of recurrent UTI (urinary tract infectio n) 10/05/2023 Diastolic CHF, chronic 10/05/2023 Resolved Problems Problem Noted Date Diagnosed Date Resolved Date Acute diastolic heart failure 10/14/2023 10/14/2023 Leukocytosis 10/05/2023 10/14/2023 Transaminitis 10/05/2023 10/14/2023 Family History Medical History Relation Name Comments Cancer Father Heart disease Father Cancer Mother Heart disease Mother Relation Name Status Comments Father Mother Social History Tobacco Use Types Packs/Day Years Used Date Smoking Tobacco: Former Cigarettes Smokeless Tobacco: Never Tobacco Cessation:Counseling Given: Not Answered Comments:Smoked ~ 1ppd x ~35 years (quit 10 yrs ago) Alcohol Use Standard Drinks/Week Comments Not Currently 0 (1 standard drink = 0.6 oz pur e alcohol) AUDIT-C Answer Date Recorded Q1: How often do you have a drink containing alcohol? Never 10/05/2023 Q2: How many drinks containi ng alcohol do you have on a typical day when you are drinking? Patient does not drink Q3: How often do you have si x or more drinks on one occasion? Never 10/05/2023 Abuse Screen Answer Date Recorded Feels Unsafe at Home or Work/School no 10/05/2023 Feels Threatened by Someone no 06/2023 Does Anyone Try to Keep You From Having Contact with Others or Doing Things Outside Your Home? no 10/05/2023 Physical Signs of Abuse Present no 10/05/2023 Housing Stability Answer Date Recorded Current Living Arrangements home 07/2023 Potentially Unsafe Housing Conditions none 10/06/2023 Family and Community Support Answer Jd e Recorded Help with Day-to-Day Activities Not on file 10/05/2023 Lonely or Isolated Not on file 10/05/2023 Employment Answer Date Recorded Do you want help finding or keeping work or a cassidy b? Not on file 10/05/2023 Disabilities Answer Date Recorded Difficulty Concentrating, Remembering or Making Decisions no 10/05/2023 Difficulty Managing Errands Independently no 10/05/2023 Education Answer Date Recorded Help with school or training? Not on file Preferred Language Belarusian 10/06/2023 Comments No Sex and Gender Information Value Date Recorded Sex Assigned at Not on file Legal Sex Female 2:26 PM EDT Gender Identity Not on file Sexual Orientation Not on file Last Filed Vital Signs Vital Sign Reading Time Taken Comments Blood Pressure 122/77 12/21/2023 1:39 PM EDT Pulse 80 12/21/2023 1:39 PM EDT Temperature 36.7 C (98 F) 10/14/2023 9:38 AM EDT Respiratory Rate 16 10/14/2023 12:22 PM EDT Oxygen Saturation 86% 12/21/2023 1:39 PM EDT Inhaled Oxygen Concentration - - Weight 79.4 kg (175 lb) 12/21/2023 1:39 PM EDT Height 152.4 cm (5') 12/21/2023 1:39 PM EDT Body Mass Index 34.18 12/21/2023 1:39 PM EDT Plan of Treatment Upcoming Encounters Date Type Department Care Team (Late st Contact Info) Description 12/26/2024 2:15 PM EDT Office Visit [facility] [address] [address] María Lawrence, JEAN PAUL [address] [place] [address] Health Maintenance Due Date Last Done Comments Annual Gynecologic Pelvic an d Breast Exam 1960 TDAP/TD VACCINES (1 - Tdap) 06/30/1979 MAMMOGRAM 2000 COLOGUARD 2005 COLON CANCER SCREENING 5 PRIYA Thorpe SIGMOIDOSCOPY 2005 COLONOSCOPY [address] SCREENING [address] COLONOGRAPHY 2005 FECAL OCCULT BLOOD TEST 2005 FIT Testing (1 year) 2005 ANNUAL WELLNESS VISIT 10/14/2023 HEPATITIS C SCREENING 10/14/2023 COVID-19 Vaccine (3 - 2024-2 6 season) 2024 06/20/2020, 05/28/2020 INFLUENZA VACCINE 01/02/2025 02/22/2023, , 02/05/2020, Additional history exists ZOSTER VACCINE Completed 02/22/2023, 11/23/2022 Pneumococcal Vaccine 50+ Completed 05/24/2023 Medical Devices Implanted Type Area Women'S Studies Professor Device Identifier Shelf Expiration Date Model / Serial / Lot Clipapplr M/ Endo Ligaclip Rot 10mm /Lg - [id number] Implanted:Qty : 1 on 10/09/2023 by Jamarcus Carlos MD at [facility] Implant N/A: Abdomen [employer] 06/01/2028 [id number] / / [id number] Insurance [employer] ADVANTAGE HMO Advance Directives * CPR (Attempt to Resuscitate) (Latest Code Status on File) Date Activated Date Inactivated Comments 10/05/2023 8:04 PM 10/14/2023 7:03 PM Question Answer Comments Code Status (Patient has no pulse and is not breathing): CPR (Attempt to Resuscitate) Medical Interventions (Patie nt has pulse or is breathing): Full Support Care Teams Copy Preparer Relationship Specialty Start Date End Date Sean Galo MD [address] [facility] [address] [place] [address] PCP - General Adolescent Medicine 10/05/23
== END 2024-12-16 23:59 | disposition home or self-care (01) ==
LOC: RAD 13:31
PROVIDERS: PCP Internal Medicine Adolescent Medicine; Visit Provider Physician Assistant Surgical
DX: M25.761 Osteophyte, right knee (principal); M25.861 Other specified joint disorders, right knee
CPT/HCPCS: 73562